=== PATIENT | female | born 1995 | race Caucasian/White ===

== ENCOUNTER 2018-02-12 20:20 | Emergency (ER) | payer BC, OTHER ==
[2018-02-12] MEDS ORDERED: IBUPROFEN 200 MG TAB PO ONE (20:43)
[2018-02-12] MEDS ORDERED: ACETAMINOPHEN 325 MG TABLET ONE (20:43)
[2018-02-12] MEDS ORDERED: IBUPROFEN 400 MG TAB ONE (20:43)
[2018-02-12] MEDS ORDERED: DEXAMETHASONE 10 MG/ML VIAL ONE (21:40)
--- NOTE | 2018-02-12 23:08 | RAD REPORT ---
EXAM DESCRIPTION: RAD - Chest Pa And Lat (2 Views) - 02/12/2018 10:56 pm CLINICAL HISTORY: Sore throat, chills, nasal congestion. Cough. COMPARISON: None. FINDINGS: The lungs are clear. The heart is normal in size. No displaced fractures. IMPRESSION: No acute or concerning finding suspected.
--- NOTE | 2018-02-12 23:16 | EDPHYS ---
Physician Documentation [facility] Name: Remington Bradford Age: 22 yrs Sex: Female : 1995 Arrival Date: 02/12/2018 Time: 20:20 Bed 23 Private MD: ED Physician Nikita Moore HPI: 02/12 21:47 This 22 yrs old Female presents to ER via Ambulatory with complaints of snw Chills, Fever, Sore Throat. 21:47 Onset: The symptoms/episode began/occurred suddenly, 2 day(s) ago, and became snw persistent. Associated signs and symptoms: Pertinent positives: congestion, cough, fever, sore throat. The patient has not experienced similar symptoms in the past. The patient has not recently seen a physician. 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 - Social history:: Smoking status: Patient/guardian denies using tobacco. ROS: 21:45 Constitutional: Negative for fever, chills, and weight loss, Eyes: Negative for injury, snw pain, redness, and discharge. 21:45 Neck: Negative for injury, pain, and swelling, Cardiovascular: Negative for chest pain, palpitations, and edema. 21:45 Abdomen/GI: Negative for abdominal pain, nausea, vomiting, diarrhea, and constipation, Back: Negative for injury and pain, : Negative for injury, bleeding, discharge, and swelling, MS/Extremity: Negative for injury and deformity, Skin: Negative for injury, rash, and discoloration, Neuro: Negative for headache, weakness, numbness, tingling, and seizure. 21:45 ENT: Positive for sore throat. 21:45 Respiratory: Positive for cough. Exam: 21:45 Head/Face: Normocephalic, atraumatic. Eyes: Pupils equal round and reactive to light, snw extra-ocular motions intact. Lids and lashes normal. Conjunctiva and sclera are non-icteric and not injected. Cornea within normal limits. Periorbital areas with no swelling, redness, or edema. 21:45 Neck: Trachea midline, no thyromegaly or masses palpated, and no cervical lymphadenopathy. Supple, full range of motion without nuchal rigidity, or vertebral point tenderness. No Meningismus. Chest/axilla: Normal chest wall appearance and motion. Nontender with no deformity. No lesions are appreciated. 21:45 Respiratory: Lungs have equal breath sounds bilaterally, clear to auscultation and percussion. No rales, rhonchi or wheezes noted. No increased work of breathing, no retractions or nasal flaring. Abdomen/GI: Soft, non-tender, with normal bowel sounds. No distension or tympany. No guarding or rebound. No evidence of tenderness throughout. Back: No spinal tenderness. No costovertebral tenderness. Full range of motion. Skin: Warm, dry with normal turgor. Normal color with no rashes, no lesions, and no evidence of cellulitis. MS/ Extremity: Pulses equal, no cyanosis. Neurovascular intact. Full, normal range of motion. Neuro: Awake and alert, GCS 15, oriented to person, place, time, and situation. Cranial nerves II-XII grossly intact. Motor strength 5/5 in all extremities. Sensory grossly intact. Cerebellar exam normal. Normal gait. 21:45 Constitutional: The patient appears alert, awake, uncomfortable. 21:45 ENT: TM's: are normal, Nose: is normal, Mouth: is normal, Posterior pharynx: erythema, that is moderate, that is marked, Dental exam: normal. 21:45 Cardiovascular: Rate: tachycardic, Heart sounds: normal. Vital Signs: 20:40 BP 131 / 99; Pulse 132; Resp 20; Temp 100.0; Pulse Ox 98% on R/A; Weight 86.18 kg; aj Height 5 ft. 6 in. (167.64 cm); Pain 8/10; 21:39 BP 120 / 86; Pulse 133; Resp 19; Temp 100.8(O); Pulse Ox 98% on R/A; kr2 22:05 BP 115 / 65; Pulse 114; Resp 18; Pulse Ox 95% on R/A; aa1 22:46 BP 114 / 60; Pulse 102; Resp 16; Pulse Ox 99% on R/A; kr2 20:40 Body Mass Index 30.67 (86.18 kg, 167.64 cm) aj MDM: 21:26 Patient medically screened. snw 23:16 Data reviewed: vital signs, nurses notes. Data interpreted: Pulse oximetry: on room air snw is 99 %. Interpretation: normal. Counseling: I had a detailed discussion with the patient and/or guardian regarding: the historical points, exam findings, and any diagnostic results supporting the discharge/admit diagnosis, lab results, the need for outpatient follow up, for definitive care, to return to the emergency department if symptoms worsen or persist or if there are any questions or concerns that arise at home. Special discussion: Based on the history and exam findings, there is no indication for further emergent testing or inpatient evaluation. I discussed with the patient/guardian the need to see the primary care provider for further evaluation of the symptoms. 02/12 20:23 Order name: Strep; Complete Time: 21:02 snw 02/12 21:02 Order name: Throat Culture EDMS 02/12 22:07 Order name: Chest Pa And Lat (2 Views) XRAY; Complete Time: 23:13 snw 02/12 21:32 Order name: VS Recheck; Complete Time: 21:39 snw 02/12 21:37 Order name: PO challenge; Complete Time: 21:53 snw Administered Medications: 20:45 Drug: Motrin 600 mg Route: PO; aj 20:45 Drug: Tylenol 650 mg Route: PO; aj 21:45 Drug: Decadron 10 mg Route: IM; Site: right deltoid; kr2 Disposition: 02/13 08:19 Co-signature as Attending Physician, Nkiita Moore MD I agree with the assessment and carol plan of care. Disposition: 02/12/18 23:15 Discharged to Home. Impression: Bronchitis, not specified as acute or chronic. - Condition is Stable. - Discharge Instructions: Acute Bronchitis, Fever, Adult, Upper Respiratory Infection, Adult, Cool Mist Vaporizers. - Prescriptions for Zyrtec 10 mg Oral Tablet - take 1 tablet by ORAL route once daily As needed; 20 tablet. Prednisone 20 mg Oral Tablet - take 2 tablet by ORAL route once daily for 5 days; 10 tablet. - Work release form, Medication Reconciliation Form, Thank You Letter, Antibiotic Education, Prescription Opioid Use form. - Follow up: Private Physician; When: 2 - 3 days; Reason: Recheck today's complaints, Continuance of care, Re-evaluation by your physician. Follow up: Emergency Department; When: As needed; Reason: Worsening of condition. Signatures: Dispatcher [employer] EDTyesha Davis, RN RN aa1 Mary German RN RN Nikita Summers MD MD cha Therrien, Shelly, CORPORATE EXECUTIVE-C CORPORATE EXECUTIVE-Csnw Nohemy Thrasher RN RN kr2 Corrections: (The following items were deleted from the chart) 02/12 23:24 23:15 02/12/2018 23:15 Discharged to Home. Impression: Bronchitis, not specified as aa1 acute or chronic. Condition is Stable. Forms are Medication Reconciliation Form, Thank You Letter, Antibiotic Education, Prescription Opioid Use. Follow up: Private Physician; When: 2 - 3 days; Reason: Recheck today's complaints, Continuance of care, Re-evaluation by your physician. Follow up: Emergency Department; When: As needed; Reason: Worsening of condition. snw
--- NOTE | 2018-02-12 23:16 | ER ---
Nurse's Notes [facility] Name: Remington Bradford Age: 22 yrs Sex: Female : 1995 Arrival Date: 02/12/2018 Time: 20:20 Bed 23 Private MD: Diagnosis: Bronchitis, not specified as acute or chronic Presentation: 02/12 20:39 Presenting complaint: Patient states: Sore throat, chills, cough, nasal congestion for aj 2 days. Transition of care: patient was not received from another setting of care. Onset of symptoms was February 11, 2018. Initial Sepsis Screen: Does the patient meet any 2 criteria? No. Patient's initial sepsis screen is negative. Does the patient have a suspected source of infection? No. Patient's initial sepsis screen is negative. Care prior to arrival: None. 20:39 Method Of Arrival: Ambulatory aj 20:39 Acuity: RAMON 4 aj Triage Assessment: 20:40 General: Appears in no apparent distress. comfortable, Behavior is calm, cooperative, aj appropriate for age. Pain: Complains of pain in left aspect of posterior pharynx and right aspect of posterior pharynx. EENT: Reports nasal congestion nasal discharge pain when swallowing. Neuro: Level of Consciousness is awake, alert, obeys commands, Oriented to person, place, time, situation, Appropriate for age. Respiratory: Airway is patent Respiratory effort is even, unlabored, Respiratory pattern is regular, symmetrical. Derm: Skin is intact, is healthy with good turgor, Skin is pink, warm \T\ dry. normal. 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 - Social history:: Smoking status: Patient/guardian denies using tobacco. Screenin:53 Abuse screen: Denies threats or abuse. Denies injuries from another. Nutritional kr2 screening: No deficits noted. Tuberculosis screening: No symptoms or risk factors identified. Fall Risk None identified. Assessment: 21:51 General: Appears in no apparent distress. comfortable, well groomed, well developed, kr2 well nourished, Behavior is calm, cooperative. Pain:. Neuro: Level of Consciousness is awake, alert, obeys commands, Oriented to person, place, time, situation. Cardiovascular: Capillary refill < 3 seconds in bilateral fingers Patient's skin is warm and dry. Respiratory: Reports cough that is Airway is patent Respiratory effort is even, unlabored, Respiratory pattern is regular, symmetrical, Breath sounds are clear bilaterally. GI: Abdomen is flat, non-distended, Bowel sounds present X 4 quads. : No signs and/or symptoms were reported regarding the genitourinary system. EENT: Nares are clear bilaterally Throat is reddened Reports nasal congestion nasal discharge that is watery. Derm: Skin is intact, is healthy with good turgor, Skin is pink, warm \T\ dry. Musculoskeletal: Circulation, motion, and sensation intact. 22:47 Reassessment: Patient appears in no apparent distress at this time. Patient and/or kr2 family updated on plan of care and expected duration. Pain level reassessed. Patient is alert, oriented x 3, equal unlabored respirations, skin warm/dry/pink. Patient states feeling better. 23:23 Reassessment: Patient appears in no apparent distress at this time. Patient is alert, aa1 oriented x 3, equal unlabored respirations, skin warm/dry/pink. Discussed d/c \T\ f/u instructions with pt; denies questions or concerns at this time. Vital Signs: 20:40 BP 131 / 99; Pulse 132; Resp 20; Temp 100.0; Pulse Ox 98% on R/A; Weight 86.18 kg; aj Height 5 ft. 6 in. (167.64 cm); Pain 8/10; 21:39 BP 120 / 86; Pulse 133; Resp 19; Temp 100.8(O); Pulse Ox 98% on R/A; kr2 22:05 BP 115 / 65; Pulse 114; Resp 18; Pulse Ox 95% on R/A; aa1 22:46 BP 114 / 60; Pulse 102; Resp 16; Pulse Ox 99% on R/A; kr2 20:40 Body Mass Index 30.67 (86.18 kg, 167.64 cm) ED Course: 20:20 Patient arrived in ED. am2 20:23 Bre[facility]alloh [facility]NP-C [facility]. snw 20:23 Nikita Moore MD is Attending Physician. snw 20:39 Triage completed. aj 20:40 Arm band placed on right wrist. aj 21:32 Nohemy Thrasher, RN is Primary Nurse. kr2 21:53 Patient has correct armband on for positive identification. Bed in low position. Call kr2 light in reach. Side rails up X 1. Adult w/ patient. Pulse ox on. NIBP on. Door closed. Head of bed elevated. 22:50 Patient moved to radiology via wheelchair. kc2 22:50 X-ray completed. Patient tolerated procedure well. kc2 22:51 Chest Pa And Lat (2 Views) XRAY In Process Unspecified. EDMS 23:23 No provider procedures requiring assistance completed. Patient did not have IV access aa1 during this emergency room visit. Administered Medications: 20:45 Drug: Motrin 600 mg Route: PO; aj 20:45 Drug: Tylenol 650 mg Route: PO; aj 21:45 Drug: Decadron 10 mg Route: IM; Site: right deltoid; kr2 Outcome: 23:15 Discharge ordered by . snw 23:23 Discharged to home ambulatory, with significant other. aa1 23:23 Condition: good 23:23 Discharge instructions given to patient, Instructed on discharge instructions, follow up and referral plans. medication usage, Demonstrated understanding of instructions, follow-up care, medications, Prescriptions given X 2. 23:24 Patient left the ED. aa1 Signatures: Dispatcher [employer] EDMS Tyesha Vela RN RN aa1 Mary German, RN RN Breana Hernandez FNP-C PROFESSOR OF FAMILY MEDICINE-Csn Yue Quintana kc2 Mary Leslie amNohemy White, RN RN kr2
== END 2018-02-12 23:24 | disposition home or self-care (01) ==
LOC: ER 20:20
DX: J40 Bronchitis, not specified as acute or chronic (principal); Z88.1 Allergy status to other antibiotic agents; Z88.2 Allergy status to sulfonamides
CPT/HCPCS: 71046; 87070; 87081; 96372; 99284; J1100

== ENCOUNTER 2021-12-25 07:44 | Emergency (ER) | payer BC, SELFPAY ==
--- OUTSIDE RECORDS SUMMARY | 2021-12-25 07:47 | XMS REPORT | Continuity of Care Document ---
:1995 Author Organization [facility] t Address [address] [place] [address] Care Team Providers Name Role Phone HANS BINGHAM Primary Care Physician Unavailable Trinidad Parry Attending Clinician Unavailable Only, Db Test Attending Clinician Unavailable Fan KUMAR Attending Clinician FAN Attending Clinician Unavailable Doctor Unassigned, Name Attending Clinician Unavailable HANS BINGHAM Attending Clinician Unavailable Hans Bingham MD Attending Clinician John Melendez DO Attending Clinician Pob1, Care Clinic Attending Clinician Unavailable Anene ORDER ENTRY Attending Clinician ANEBALJEET Attending Clinician Unavailable Payers Payer Name Policy Type Policy Number Effective Date Expiration Date S kelly [employer] [place] - [id number] 2017 00:00:00 OUT OF STATE Problems Condition Condition Condition Status Onset Resolution Last Treating Co mments Source Name Details Category Date Date Treatment Clinician Date Tobacco Tobacco Disease Active Univers abuse abuse -05 ity of 00:00: [place] [address] Medical Branch Encounter Encounter Diagnosis Active [facility] general [facility]oria adult adult l medical medical Outpati examinatio examinatio en t n with n with Clinics abnormal abnormal findings findings Pharyngiti Pharyngiti Diagnosis Active [facility] - unspecifie unspecifie Me moria d etiology d etiology l Outpati ent Clinics Obesity Obesity Diagnosis Active [facility] (BMI (BMI [facility] - 30-39.9) 30-39.9) Memori a l Outpati ent Clinics Allergies, Adverse Reactions, Alerts Allergy Allergy Status Severity Reaction(s) Onset Inactive Treating Comm ents Source Name Type Date Date Clinician AZITHROM DRUG Active Hives Univers YCIN INGREDI 04-08 ity of 00:00: [place] 00 Medical Branch PENICILL DRUG Active Hives Univers IN INGREDI 04-08 ity of 00:00: 00 Medical Branch SULFA Drug Active Other-Cmnt Univer s (SULFONA Class 04-08 ity of MIDE 00:00: [place] ANTIBIOT 00 Medical ICS) Branch Azithrom Propensi Active Hives Univer s ycin ty to 04-08 ity of adverse 00:00: [place] reaction 00 Medical s Branch Penicill Propensi Active Hives Univer s in ty to 04-08 ity of adverse 00:00: [place] reaction 00 Medical s Branch Sulfa Propensi Active Other - See Stomach Un alessia (Sulfona ty to comments 04-08 problems ity of mide adverse 00:00: [place] Antibiot reaction 00 Medica l ics) s Branch Penicill Propensi Active Hives Univer s in ty to 04-08 ity of adverse 00:00: [place] reaction 00 Medical s Branch lactose Adverse Active Info Not [facility] gluten Adverse Active Info Not [facility] Reaction [facility] PCN Adverse Active hives [facility] Reaction [facility] SULPHA Adverse Active stomach [facility] Reaction upset [facility] Azithrom Adverse Active stomach [facility] ycin Reaction upset [facility] Amoxicil Adverse Active hives [facility] kristy Reaction [facility] pork Adverse Active Info Not [facility] Reaction Available [facility] chocolat Adverse Active Info Not [facility] Reaction [facility] Social History Social Habit Start Date Stop Date Quantity Comments Source Exposure to Not sure [facility] SARS-CoV-2 (event) [facility] Alcohol intake 2020-06-29 2020-06-29 Current University of 00:00:00 00:00:00 non-drinker of [facility] alcohol Branch (finding) Tobacco use and 2017-04-08 2017-04-08 Never used Universit y of exposure 00:00:00 00:00:00 [facility] Cigarettes smoked 2017-04-08 2017-04-08 Univers ity of current (pack per 00:00:00 00:00:00 ) - Reported Branch Sex Ass[birth year] At [birth year] Universit y of 00:00:00 00:00:00 [facility] Smoking Status Start Date Stop Date Source Current every day smoker 2017-04-08 00:00:00 [facility] Ordered Filled Start Stop Current Ordering Indication Dosage Frequency Signature Comments Components Source Medication Medication Date Date Medication? Clinician (SIG) Name Name buPROPion Yes [id number] 150mg Take 1 U nivers XL 150 mg 5-28 tablet by ity o f 24 hr 00:00: mouth [place] tablet 00 daily. Medical Branch escitalopra Yes [id number] 20mg Take 1 Univers m oxalate 5-28 tablet by ity o f 20 mg 00:00: mouth [place] tablet 00 daily. Medical Branch buPROPion Yes [id number] 150mg Take 1 U nivers XL 150 mg 5-28 tablet by ity o f 24 hr 00:00: mouth [place] tablet 00 daily. Medical Branch escitalopra Yes [id number] 20mg Take 1 Univers m oxalate 5-28 tablet by ity o f 20 mg 00:00: mouth [place] tablet 00 daily. Medical Branch buPROPion Yes [id number] 150mg Take 1 U nivers XL 150 mg 5-28 tablet by ity o f 24 hr 00:00: mouth [place] tablet 00 daily. Medical Branch escitalopra Yes [id number] 20mg Take 1 Univers m oxalate 5-28 tablet by ity o f 20 mg 00:00: mouth [place] tablet 00 daily. Medical Branch buPROPion Yes [id number] 150mg Take 1 U nivers XL 150 mg 5-28 tablet by ity o f 24 hr 00:00: mouth [place] tablet 00 daily. Medical Branch escitalopra Yes [id number] 20mg Take 1 Univers m oxalate 5-28 tablet by ity o f 20 mg 00:00: mouth [place] tablet 00 daily. Medical Branch escitalopra 2019-10 Yes [id number] 15mg Take 1.5 Univers m oxalate 0-14 tablets by ity of 10 mg 00:00: mouth [place] tablet 00 daily. Medical Branch escitalopra 2019-10 Yes [id number] 15mg Take 1.5 Univers m oxalate 0-14 tablets by ity of 10 mg 00:00: mouth [place] tablet 00 daily. Medical Branch escitalopra 2019-10 Yes [id number] 15mg Take 1.5 Univers m oxalate 0-14 tablets by ity of 10 mg 00:00: mouth [place] tablet 00 daily. Medical Branch escitalopra 2019-10 Yes [id number] 15mg Take 1.5 Univers m oxalate 0-14 tablets by ity of 10 mg 00:00: mouth [place] tablet 00 daily. Medical Branch escitalopra 2019-10- No [id number] 15mg Take 1.5 Univers m oxalate 0-14 05-28 tablets by ity of 10 mg 00:00: 00:00 mouth [place] tablet 00 :00 daily. [facility] Branch escitalopra 2019-10- No [id number] 15mg Take 1.5 Univers m oxalate 0-14 05-28 tablets by ity of 10 mg 00:00: 00:00 mouth [place] tablet 00 :00 daily. [facility] famotidine 2020- No 40mg Take 40 mg Univers 40 mg 9-16 09-16 by mouth ity of tablet 20:34: 00:00 daily. [place] 51 :00 [facility] famotidine 2020- No 40mg Take 40 mg Univers 40 mg 9-16 09-16 by mouth ity of tablet 20:34: 00:00 daily. [place] 51 :00 [facility] Branch escitalopra Yes [id number] 10mg Take 1 Univers m oxalate 9-16 tablet by ity o f 10 mg 00:00: mouth [place] tablet 00 daily. Medical Branch escitalopra Yes [id number] 10mg Take 1 Univers m oxalate 9-16 tablet by ity o f 10 mg 00:00: mouth [place] tablet 00 daily. [facility] escitalopra 2019- No [id number] 10mg Take 1 Univers m oxalate 9-16 10-14 tablet by ity of 10 mg 00:00: 00:00 mouth [place] tablet 00 :00 daily. [facility] escitalopra 2020-0 2020- No [id number] 10mg Take 1 Univers m oxalate 9-16 10-14 tablet by ity of 10 mg 00:00: 00:00 mouth [place] tablet 00 :00 daily. Medical Branch omeprazole 2019-0 Yes 40mg Take 40 mg U nivers 40 mg 8-25 by mouth ity of capsule 00:00: daily. [place] 00 Medical Branch omeprazole 2019-0 Yes 40mg Take 40 mg U nivers 40 mg 8-25 by mouth ity of capsule 00:00: daily. [place] 00 Medical Branch omeprazole 2019-0 2020- No 40mg Take 40 mg Univers 40 mg 8-25 10-14 by mouth ity of capsule 00:00: 00:00 daily. [place] 00 :00 Medical Branch omeprazole 2019-0 2020- No 40mg Take 40 mg Univers 40 mg 8-25 10-14 by mouth ity of capsule 00:00: 00:00 daily. [place] 00 :00 Medical Branch famotidine 2019-0 Yes 40mg Take 40 mg U nivers 40 mg 7-27 by mouth ity of tablet 14:58: daily. [place] 17 Medical Branch famotidine 2019-0 Yes 40mg Take 40 mg U nivers 40 mg 7-27 by mouth ity of tablet 14:58: daily. [place] [address] Medical Branch pantoprazol 2019-0 Yes [id number] 40mg Take 1 Univers e 7-27 tablet by ity of (PROTONIX) 00:00: mouth [place] 40 mg EC 00 daily. Medical tablet Branch pantoprazol 2019-0 Yes [id number] 40mg Take 1 Univers e 7-27 tablet by ity of (PROTONIX) 00:00: mouth [place] 40 mg EC 00 daily. Medical tablet Branch pantoprazol 0 2020- No [id number] 40mg Take 1 Univers e 7-27 09-16 tablet by ity of (PROTONIX) 00:00: 00:00 mouth [place] 40 mg EC 00 :00 daily. Medical tablet Branch pantoprazol 2019-0 2020- No [id number] 40mg Take 1 Univers e 7-27 09-16 tablet by ity of (PROTONIX) 00:00: 00:00 mouth [place] 40 mg EC 00 :00 daily. Medical tablet Branch acetaminoph 2017-0 Yes [id number] 1/2 - 1 Univers en-codeine 5-05 tab Every ity of 300-30 mg 00:00: 4hrs as [place] tablet 00 needed for Medical pain or Branch cough requiring narcotic acetaminoph Yes [id number] 2 - 1 Univers en-codeine 5-05 tab Every ity of 300-30 mg 00:00: 4hrs as [place] tablet 00 needed for Medical pain or Branch cough requiring narcotic acetaminoph 2020- No [id number] 10/15 - 1 Univers en-codeine 5-05 -16 tab Every ity of 300-30 mg 00:00: 00:00 4[place]rs [place] tablet [place] :00 needed for Medical pain or Branch cough requiring narcotic acetaminoph 2020- No [id number] 10/15 - Univers en-codeine 5-05 -16 tab Every ity of 300-30 mg 00:00: 00:00 4[place]rs [place] tablet [place] :00 needed for Medical pain or Branch cough requiring narcotic predniSONE Yes Univers 20 mg 5-03 ity of tablet 00:00: [place] 00 Medical Branch predniSONE Yes Univers 20 mg 5-03 ity of tablet 00:00: [place] 00 Medical Branch predniSONE 2020- No Univer s 20 mg 5-03 -16 ity of tablet 00:00: 00:00 [place] 00 :00 Medical Branch predniSONE 2020- No Univer s 20 mg 5-03 -16 ity of tablet 00:00: 00:00 [place] 00 :00 Medical Branch Immunizations Ordered Filled Immunization Date Status Comments [facility] e Immunization Name Name Gardasil, HPV Gardasil, HPV 2019-11-[address] [facility] - quadrivalent, IM, quadrivalent, IM, 00:00:00 [facility] Vital Signs Vital Name Observation Time Observation Value Comments Source Systolic blood 2021-03-10 15:19:00 126 mm[Hg] Univer sity of pressure [facility] Diastolic blood 2021-03-10 15:19:00 86 mm[Hg] Unive rsity of pressure [facility] Heart rate 2021-03-10 15:19:00 86 /min [facility] Body height 2021-03-10 15:19:00 170.2 cm [facility] Body weight 2021-03-10 15:19:00 104.327 kg Universi ty of [facility] Branch BMI 2021-03-10 15:19:00 36.02 kg/m2 Universi ty of [facility] Branch Systolic blood 2020-07-27 20:03:00 133 mm[Hg] Univer sity of pressure [place] Medical [facility] Diastolic blood 2020-07-27 20:03:00 84 mm[Hg] Unive rsity of pressure [facility] Branch Heart rate 2020-07-27 20:03:00 89 /min Universi ty of [place] Medical [facility] Body weight 2020-07-27 20:03:00 99.338 kg Universi ty of [place] Medical Branch BMI 2020-07-27 20:03:00 34.30 kg/m2 Universi ty of [facility] Branch Systolic blood 2020-06-29 20:33:00 135 mm[Hg] Univer sity of pressure [facility] Branch Diastolic blood 2020-06-29 20:33:00 89 mm[Hg] Unive rsity of pressure [facility] Branch Heart rate 2020-06-29 20:33:00 89 /min Universi ty of [facility] Branch Body temperature 2020-06-29 20:33:00 37.06 Betina Univ ersity of [facility] Body height 2020-06-29 20:33:00 170.2 cm Universi ty of [facility] Branch Body weight 2020-06-29 20:33:00 98.884 kg Universi ty of [facility] Branch BMI 2020-06-29 20:33:00 34.14 kg/m2 Universi ty of [facility] Branch Systolic blood 2020-05-09 14:56:00 115 mm[Hg] Univer sity of pressure [facility] Branch Diastolic blood 2020-05-09 14:56:00 70 mm[Hg] Unive rsity of pressure [facility] Branch Heart rate 2020-05-09 14:56:00 67 /min Universi ty of [facility] Branch Body temperature 2020-05-09 14:56:00 37.39 Betina Univ ersity of [facility] Branch Respiratory rate 2020-05-09 14:56:00 18 /min Univ ersity of [facility] Branch Body height 2020-05-09 14:56:00 170.2 cm Universi ty of [facility] Branch Body weight 2020-05-09 14:56:00 103.42 kg Universi ty of [facility] Branch BMI 2020-05-09 14:56:00 35.71 kg/m2 [facility] Oxygen saturation in 2020-05-09 14:56:00 99 /min University Arterial blood by [facility] Pulse oximetry Branch Procedures Procedure Date / Time Performed Performing Clinician [facility] e CONSENT/REFUSAL FOR 2021-11-08 16:55:51 Doctor Unassigned, No Un [facility] DIAGNOSIS AND Name Medical Branch TREATMENT Encounters Start End Encounter Admission Attending Care Care Encounter Source Date/Time Date/Time Type Type Clinicians Facility Department ID 2021-11-[address] [id number] 11:02:10 [place] [id number] [facility] 2021-11-08 2021-11-08 Laboratory Only, Ang Db Test [facility] 1.2.8 40.114 [id number] Univers 10:45:00 11:00:00 Only Fan Vikki [facility] [id number] ity of [place] [id number] Shadi as CAIN?BLEA [phone] [address] MEDICAL OFFICE BUILDING 2021-11-08 2021-11-08 Outpatient R [facility] [id number] Univers 10:45:00 10:45:00 [id number] ity [facility] 2021-11-08 2021-11-08 Outpatient R FAN [facility] [id number] Univers 10:45:00 10:45:00 VIKKI [facility] 2021-11-08 2021-11-08 Orders Doctor MAHMOOD 1.2.840.114 [id number] Univers 00:00:00 00:00:00 Only UnassLETICIA munoz [id number] ity of Standard [facility] [id number] Shadi as [phone] [place] [address] Branch 2021-04-07 2021-04-07 Outpatient R VICTORINO [facility] [id number] Univers 10:00:00 10:00:00 [facility] [id number] [facility] 2021-04-07 2021-04-07 Outpatient R VICTORINO [facility] [id number] Univers 10:00:00 10:00:00 GLORIA [facility] 2021-03-10 2021-03-[address] [facility] 1.2.840.114 [id number] Univers 10:13:12 10:28:12 Visit [facility] [id number] it y of [place] [id number] Shadi as [place] [phone] Nv dical nal [address] 2021-03-10 2021-03-10 [facility] [id number] Univers 10:15:00 10:15:00 GLORIA [id number] [facility] 2021-03-10 2021-03-10 Outpatient R [facility] [id number] Univers 10:15:00 10:15:00 GLORIA [facility] 2021-01-03 2021-01-[address] [facility] 1.2.840.114 [id number] Univers 00:00:00 00:00:00 Outreach [facility] [id number] i ty of [facility] [id number] Malina UP [id number] Nv dical [address] 2020-11-23 2020-11-23 Outpatient R [facility] [id number] Univers 10:15:00 10:15:00 GLORIA [id number] [facility] 2020-11-23 2020-11-23 Outpatient R [facility] [id number] Univers 10:15:00 10:15:00 GLORIA [facility] 2020-08-24 2020-08-24 Outpatient R HADLEYLOPEZALEXAND[facility] [id number] Univers 13:15:00 13:15:00 GLORIA [id number] [facility] 2020-08-24 2020-08-24 Outpatient R [facility] [id number] Univers 13:15:00 13:15:00 GLORIA [facility] 2020-08-23 2020-08-23 Telephone [facility] 1.2.840.114 [id number] Univers 00:00:00 00:00:00 [facility] [id number] it y of [place] [id number] Shadi as Professio [phone] Nv dical nal [address] [place] [address] Office [facility] 2020-07-27 2020-07-27 Office [facility] 1.2.840.114 [id number] Univers 14:56:19 15:11:19 Visit [facility] [id number] it y of [place] [id number] Shadi as Professio [phone] Nv dical [address] Office [facility] 2020-07-27 2020-07-27 [facility] [id number] Univers 15:00:00 15:00:00 GLORIA [id number] [facility] 2020-07-27 2020-07-27 Outpatient R [facility]LEYL[facility] [id number] Univers 15:00:00 15:00:00 General acute hospital 2020-06-29 2020-06-29 [facility] 1.2.840.114 [id number] Univers 15:26:03 15:58:52 Visit [facility] [id number] it y of [place] [id number] Shadi as Professio [phone] [address] 2020-06-29 2020-06-29 Outpatient R [facility] [id number] Univers 15:30:00 15:30:00 GLORIA [id number] [facility] 2020-06-29 2020-06-29 [facility] [id number] Univers 15:30:00 15:30:00 GLORIA [facility] 2020-06-24 2020-06-24 Outpatient R [facility] [id number] Univers 13:30:00 13:30:00 GLORIA [id number] [facility] 2020-06-24 2020-06-24 Outpatient [facility] [id number] Univers 13:30:00 13:30:00 GLORIA [facility] 2020-06-24 2020-06-24 [facility] [id number] Univers 09:30:00 09:30:00 GLORIA ity [facility] 2020-06-08 2020-06-08 Telephone Victorino [facility] 1.2.840.114 [id number] Univers 00:00:00 00:00:00 Gloria [facility] [id number] it y of [place] [id number] Shadi as Professio [phone] [address] Office [address] 2020-05-09 2020-05-09 Urgent Pob1, Acute Care Clinic [facility] 1. [id number] [id number] [facility] 09:48:24 10:33:47 Elena Richardson [facility] [id number] ity of [place] [id number] Shadi as Professio [phone] [address] Office [facility] 2020-05-09 2020-05-09 Outpatient R [facility] [id number] Univers 09:40:00 09:40:00 [id number] ity [facility] 2020-05-09 2020-05-09 [facility] [id number] Univers 09:40:00 09:40:00 [facility] 2019-11-03 2019-11-03 [facility] [id number] 14[facility]00:00 14:00:00 [facility] Family Medicine Medicine Outpati ent Clinics Results This patient has no known results.
[2021-12-25] MEDS ORDERED: NA CHLORIDE 0.9% 1,000 ML ONE (08:35)
[2021-12-25] MEDS ORDERED: ONDANSETRON 4 MG/2 ML VIAL ONE (08:35)
[2021-12-25 08:51] LABS: Absolute Lymphocytes (CBC) 2.6 K/uL (0.7-4.9); Hematocrit 44.7 % (36.0-45.0); Lymphocytes % 35.4 % (15.3-44.8); MPV 9.5 fL (7.6-11.3); RBC Red Blood Cell Count 4.81 M/uL (3.86-4.86)
--- NOTE | 2021-12-25 09:03 | RAD REPORT ---
EXAM DESCRIPTION: US - Abdomen Exam Limited - 12/25/2021 8:43 am CLINICAL HISTORY: ABD PAIN COMPARISON: No comparisons FINDINGS: The gallbladder demonstrates no gallstones. No pericholecystic fluid or gallbladder wall t hickening. The common bile duct is normal measuring 3 mm. The liver demonstrates no findings of intrahepatic biliary dilatation. IMPRESSION: Unremarkable examination.
[2021-12-25 09:31] LABS: ALT/SGPT 112 U/L (12-78); AST/SGOT 49 U/L (15-37); Albumin 4.1 g/dL (3.4-5.0); Alkaline Phosphatase 69 U/L (45-117); BUN Blood Urea Nitrogen 7 mg/dL (7-18); Bicarbonate 27 mmol/L (21-32); Bilirubin Total 0.4 mg/dL (0.2-1.0); Glucose Level 98 mg/dL (74-106); Lipase 110 U/L (73-393); Potassium 4.3 mmol/L (3.5-5.1); Protein, Total 7.8 g/dL (6.4-8.2); Sodium Level 140 mmol/L (136-145)
[2021-12-25 09:32] LABS: Bilirubin Direct < 0.1 mg/dL (0-0.2)
[2021-12-25 10:06] LABS: Urine Blood Negative (Negative); Urine Glucose Negative (Negative); Urine Protein Negative (Negative); Urine Specific Gravity 1.015 (1.005-1.030); Urine pH 5.5 (5.0-7.0)
--- NOTE | 2021-12-25 10:30 | RAD REPORT ---
EXAM DESCRIPTION: CTAbdomen Pelvis W Contrast - 12/25/2021 10:12 am CLINICAL HISTORY: Abdominal pain. ABD PAIN COMPARISON: No comparisons TECHNIQUE: Biphasic CT imaging of the abdomen and pelvis was performed with 100 ml non-ionic IV cont rast. All CT scans are performed using dose optimization technique as appropriate and may include automated exposure control or mA/KV adjustment according to patient size. FINDINGS: The lung bases are clear. The liver demonstrates mild fatty infiltration. Spleen, pancreas, adrenal glands and kidneys are with in normal limits. No bowel obstruction, free air, free fluid or abscess. Small fat containing umbilical hernia. The sadaf endix is normal. No evidence of significant lymphadenopathy. No suspicious bony findings. IMPRESSION: No acute intra-abdominal or pelvic finding. Fatty liver.
--- NOTE | 2021-12-25 11:12 | ER ---
Nurse's Notes [facility] Name: Remington Bradford Age: 26 yrs Sex: Female : 1995 Arrival Date: 12/25/2021 Time: 07:47 Bed 20 Private MD: Toby Bingham Diagnosis: Abdominal pain, Generalized;Upper abdominal pain, unspecified;Acute gastritis Presentation: 12/25 08:05 Chief complaint: Patient states: Epigastric pain x 1 month, reports worse right after jl7 eating, reports abdomen becomes distended, reports nausea and diarrhea, denies bloody stool and reports "Last night it smelled like blood.". Coronavirus screen: At this time, the client does not indicate any symptoms associated with coronavirus-19. Ebola Screen: No symptoms or risks identified at this time. Initial Sepsis Screen: Does the patient meet any 2 criteria? No. Patient's initial sepsis screen is negative. Does the patient have a suspected source of infection? No. Patient's initial sepsis screen is negative. Risk Assessment: Do you want to hurt yourself or someone else? Patient reports no desire to harm self or others. Onset of symptoms was November 27, 2021. 08:05 Method Of Arrival: Ambulatory jl7 08:05 Acuity: RAMON 3 jl7 Triage Assessment: 08:07 General: Appears in no apparent distress. uncomfortable, Behavior is calm, cooperative, jl7 appropriate for age. Pain: Complains of pain in epigastric area Pain does not radiate. Pain currently is 7 out of 10 on a pain scale. at worst was 12 out of 10 on a pain scale. GI: Reports bloating, diarrhea, epigastric pain, nausea. 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 - Social history:: Smoking status: Patient denies any tobacco usage or history of. Screenin:24 Abuse screen: Denies threats or abuse. Denies injuries from another. Nutritional ic1 screening: No deficits noted. Tuberculosis screening: No symptoms or risk factors identified. Fall Risk None identified. Assessment: 08:24 General: Appears uncomfortable, Behavior is calm, cooperative. Pain: Complains of pain ic1 in abdomen. Neuro: Level of Consciousness is awake, alert, obeys commands, Oriented to person, place, time, situation. Cardiovascular: No deficits noted. Respiratory: No deficits noted. GI: Reports upper abdominal pain, diarrhea, nausea. : No deficits noted. EENT: No deficits noted. Derm: No deficits noted. Musculoskeletal: No deficits noted. Vital Signs: 08:05 BP 133 / 91; Pulse 77; Resp 17; Temp 97.7; Pulse Ox 100% on R/A; Weight 107.05 kg; jl7 Height 5 ft. 7 in. (170.18 cm); Pain 7/10; 09:41 Pulse 80; Resp 18; Pulse Ox 100% ; ic1 11:24 BP 120 / 68; Pulse 85; Resp 18; Pulse Ox 100% ; ic1 08:05 Body Mass Index 36.96 (107.05 kg, 170.18 cm) jl7 ED Course: 07:47 Patient arrived in ED. as 07:47 Toby Bingham MD is Private Physician. as 07:48 Eros Cole MD is Attending Physician. kdr 08:07 Triage completed. jl7 08:07 Arm band placed on right wrist. jl7 08:24 Radha Augustine, RN is Primary Nurse. ic1 08:24 Patient has correct armband on for positive identification. Bed in low position. Call ic1 light in reach. Side rails up X2. Pulse ox on. NIBP on. Door closed. Warm blanket given. Head of bed elevated. 08:24 No provider procedures requiring assistance completed. Inserted saline lock: 20 gauge ic1 in left antecubital area, using aseptic technique. Blood collected. 08:43 US Abdomen Limited In Process Unspecified. EDMS 10:12 CT Abd/Pelvis - IV Contrast Only In Process Unspecified. EDMS 11:11 Toby Bingham MD is Referral Physician. kdr 11:11 Norma Nj MD is Referral Physician. kdr 11:24 IV discontinued, intact, bleeding controlled, No redness/swelling at site. Pressure ic1 dressing applied. Administered Medications: 08:42 Drug: Zofran (Ondansetron) 4 mg Route: IVP; Site: left antecubital; ic1 08:42 Drug: NS 0.9% 1000 ml Route: IV; Rate: 1 bolus; Site: left antecubital; ic1 10:19 Follow up: IV Status: Completed infusion; IV Intake: 1000ml ic1 Intake: 10:19 IV: 1000ml; Total: 1000ml. ic1 Outcome: 11:12 Discharge ordered by . kdr 11:24 Discharged to home ambulatory. ic1 11:24 Condition: stable 11:24 Discharge instructions given to patient, Instructed on discharge instructions, follow up and referral plans. Demonstrated understanding of instructions, follow-up care, medications, Prescriptions given X 2. 11:25 Patient left the ED. ic1 Signatures: Dispatcher [employer] EDMS Eros Cole MD MD kdr Martinez, Amelia as Leal, Jahala, RN RN jl7 Radha Augustine RN RN ic1 Corrections: (The following items were deleted from the chart) 08:09 08:07 PMHx: None; morgan mora
--- NOTE | 2021-12-25 11:13 | EDPHYS ---
Physician Documentation [facility] Name: Remington Bradford Age: 26 yrs Sex: Female : 1995 Arrival Date: 12/25/2021 Time: 07:47 Bed 20 Private MD: Toby Bingham ED Physician Eros Cole HPI: 12/25 08:34 This 26 yrs old Female presents to ER via Ambulatory with complaints of Epigastric kdr Pain, Abdominal Pain. 08:34 The patient presents with abdominal pain in the upper abdomen. Onset: The kdr symptoms/episode began/occurred gradually, 1 month(s) ago. The symptoms do not radiate. Associated signs and symptoms: Pertinent positives: nausea. The symptoms are described as achy, crampy, intermittent, vague, waxing/waning. Modifying factors: The symptoms are alleviated by nothing, the symptoms are aggravated by food, pressure, touching the area. Severity of pain: At its worst the pain was severe in the emergency department the pain is unchanged. The patient has experienced similar episodes in the past, Has been ongoing for a month or more. The patient has not recently seen a physician. Patient had seen a local GI doctor over the past year or so and had an endoscopy done at that time. Her impression was that there was some mild inflammation but otherwise nothing serious and no further follow-up. 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 - Social history:: Smoking status: Patient denies any tobacco usage or history of. ROS: 08:34 Constitutional: Negative for fever, chills, and weight loss, Eyes: Negative for injury, kdr pain, redness, and discharge, Neck: Negative for injury, pain, and swelling, Cardiovascular: Negative for chest pain, palpitations, and edema, Respiratory: Negative for shortness of breath, cough, wheezing, and pleuritic chest pain, Back: Negative for injury and pain, : Negative for injury, bleeding, discharge, and swelling, MS/Extremity: Negative for injury and deformity, Skin: Negative for injury, rash, and discoloration, Neuro: Negative for headache, weakness, numbness, tingling, and seizure activity. Psych: Negative for depression, anxiety, suicide ideation, homicidal ideation, and hallucinations, Allergy/Immunology: Negative for hives, rash, and allergies, Endocrine: Negative for neck swelling, polydipsia, polyuria, polyphagia, and marked weight changes, Hematologic/Lymphatic: Negative for swollen nodes, abnormal bleeding, and unusual bruising. 08:34 Abdomen/GI: Positive for abdominal pain, nausea, Negative for vomiting, constipation, abdominal distension, anorexia, dysphagia, hematemesis, black/tarry stool, rectal pain, rectal bleeding, bowel incontinence. Exam: 08:34 Constitutional: This is a well developed, well nourished patient who is awake, alert, kdr and in no acute distress. Head/Face: Normocephalic, atraumatic. Eyes: Pupils equal round and reactive to light, extra-ocular motions intact. Lids and lashes normal. Conjunctiva and sclera are non-icteric and not injected. Cornea within normal limits. Periorbital areas with no swelling, redness, or edema. Neck: Trachea midline, no thyromegaly or masses palpated, and no cervical lymphadenopathy. Supple, full range of motion without nuchal rigidity, or vertebral point tenderness. No Meningismus. Chest/axilla: Normal chest wall appearance and motion. Nontender with no deformity. No lesions are appreciated. Cardiovascular: Regular rate and rhythm with a normal S1 and S2. No gallops, murmurs, or rubs. Normal PMI, no JVD. No pulse deficits. Respiratory: Lungs have equal breath sounds bilaterally, clear to auscultation and percussion. No rales, rhonchi or wheezes noted. No increased work of breathing, no retractions or nasal flaring. Back: No spinal tenderness. No costovertebral tenderness. Full range of motion. Skin: Warm, dry with normal turgor. Normal color with no rashes, no lesions, and no evidence of cellulitis. MS/ Extremity: Pulses equal, no cyanosis. Neurovascular intact. Full, normal range of motion. Neuro: Awake and alert, GCS 15, oriented to person, place, time, and situation. Cranial nerves II-XII grossly intact. Motor strength 5/5 in all extremities. Sensory grossly intact. Cerebellar exam normal. Normal gait. Psych: Awake, alert, with orientation to person, place and time. Behavior, mood, and affect are within normal limits. 08:34 Abdomen/GI: Inspection: obese Bowel sounds: diminished, in all quadrants, Palpation: soft, mild abdominal tenderness, in the right upper quadrant and right lower quadrant, rebound tenderness, is not appreciated, Rectal exam: is unremarkable, rectal tone normal, Stool: guaiac negative, mass, is not appreciated, tenderness, is not appreciated, the exam is chaperoned by the nurse. Vital Signs: 08:05 BP 133 / 91; Pulse 77; Resp 17; Temp 97.7; Pulse Ox 100% on R/A; Weight 107.05 kg; jl7 Height 5 ft. 7 in. (170.18 cm); Pain 7/10; 09:41 Pulse 80; Resp 18; Pulse Ox 100% ; ic1 11:24 BP 120 / 68; Pulse 85; Resp 18; Pulse Ox 100% ; ic1 08:05 Body Mass Index 36.96 (107.05 kg, 170.18 cm) jl7 MDM: 08:34 Data reviewed: vital signs, nurses notes, lab test result(s), radiologic studies. kdr Counseling: I had a detailed discussion with the patient and/or guardian regarding: the historical points, exam findings, and any diagnostic results supporting the discharge/admit diagnosis, lab results, radiology results, the need for outpatient follow up. 11:12 Patient medically screened. kdr 11:15 ED course: Patient symptoms were much improved. She rated her pain at a 2 or 3. She kdr declined further pain medication. Patient was happy with the care provided the plan for discharge and follow-up. She had seen a local services mgr previously for this pain . 12/25 08:24 Order name: Basic Metabolic Panel; Complete Time: :44 kdr 12/25 08:24 Order name: CBC with Diff; Complete Time: :44 kdr 12/25 08:24 Order name: Hepatic Function; Complete Time: :44 kdr 12/25 08:24 Order name: Lipase; Complete Time: : kdr 12/25 10:05 Order name: Urine Dipstick-Ancillary; Complete Time: 10:28 EDMS 12/25 10:07 Order name: Urine --Ancillary (enter results) bd 12/25 08:24 Order name: IV Saline Lock; Complete Time: 08:28 kdr 12/25 08:24 Order name: Labs collected and sent; Complete Time: 08:28 kdr 12/25 08:24 Order name: Urine Dipstick-Ancillary (obtain specimen); Complete Time: 10:19 kdr 12/25 08:24 Order name: Urine Test (obtain specimen); Complete Time: 10:19 kdr 12/25 08:24 Order name: US Abdomen Limited; Complete Time: 09:44 kdr 12/25 08:24 Order name: CT Abd/Pelvis - IV Contrast Only; Complete Time: 10:43 kdr Administered Medications: 08:42 Drug: Zofran (Ondansetron) 4 mg Route: IVP; Site: left antecubital; ic1 08:42 Drug: NS 0.9% 1000 ml Route: IV; Rate: 1 bolus; Site: left antecubital; ic1 10:19 Follow up: IV Status: Completed infusion; IV Intake: 1000ml ic1 Disposition Summary: 12/25/21 11:12 Discharge Ordered Location: Home kdr Problem: an acute exacerbation kdr Symptoms: have improved kdr Condition: Stable kdr Diagnosis - Abdominal pain, Generalized kdr - Upper abdominal pain, unspecified kdr - Acute gastritis kdr Followup: kdr - With: Toby Bingham MD - When: 48 Hours - Reason: If symptoms return, Further diagnostic work-up, Recheck today's complaints, Continuance of care, Re-evaluation by your physician Followup: kdr - With: Norma Nj MD - When: 2 - 3 days - Reason: If symptoms return, Further diagnostic work-up, Recheck today's complaints, Continuance of care, Re-evaluation by your physician Discharge Instructions: - Discharge Summary Sheet kdr - Gastritis, Adult, [id number] kdr - Abdominal Pain, Adult, [id number] kdr Forms: - Medication Reconciliation Form kdr - Thank You Letter kdr Prescriptions: - Protonix 40 mg Oral Tablet - take 1 tablet by ORAL route once daily; 30 tablet; Refills: 0, Product kdr Selection Permitted - ondansetron 8 mg Oral tablet,disintegrating - take 1 tablet by ORAL route every 8 hours As needed; 16 tablet; Refills: 0, kdr Product Selection Permitted Signatures: Dispatcher [employer] Eros Armendariz MD MD kdr Leal, Jahala, RN RN jl7 Radha Augustine RN RN ic1 Corrections: (The following items were deleted from the chart) 08:09 08:07 PMHx: None; morgan mora
[2021-12-25 11:27] LABS: Urine Specific Gravity/Preg 1.015 (1.005-1.030)
[2021-12-25 11:31] VITALS: TEMP 97.7; O2SAT 100
[2021-12-25 11:34] VITALS: BP 120/68
== END 2021-12-25 11:25 | disposition home or self-care (01) ==
LOC: ER 07:44
DX: K29.00 Acute gastritis without bleeding (principal); R10.84 Generalized abdominal pain; Z88.0 Allergy status to penicillin; Z88.1 Allergy status to other antibiotic agents; Z91.09 Other allergy status, other than to drugs and biological substances
CPT/HCPCS: 36415; 74177; 76705; 80048; 80076; 81003; 81025; 83690; 85025; 96361; 96374; 99284; J2405; J7030; Q9967

== ENCOUNTER 2023-04-08 11:53 | Emergency (ER) | payer OTHER ==
--- OUTSIDE RECORDS SUMMARY | 2023-04-08 11:57 | XMS REPORT | Continuity of Care Document ---
:1995 Author Organization [facility] t Address [address] [facility] [address] [place] [address] Care Team Providers Name Role Phone GLORIA GLEASON Primary Care Physician Unavailable Leela Parry Attending Clinician Unavailable SHOSHANA OQUENDO Attending Clinician Unavailable SHOSHANA OQUENDO Attending Clinician Unavailable GLORIA GLEASON Attending Clinician Unavailable Gonzales Attending Clinician Unavailable Gloria Gleason MD Attending Clinician Doctor Unassigned, [place] Attending Clinician Unavailable Pob, Adc Lab Main Attending Clinician Unavailable Lab, Ang - Db Attending Clinician Unavailable Only, Ang Db Test Attending Clinician Unavailable Vikki Chavira MD Attending Clinician VIKKI CHAVIRA Attending Clinician Unavailable Darinel Melendez DO Attending Clinician Pob1, Acute [facility] Attending Clinician Unavailable Elena Watt Attending Clinician ELENA CALHOUN Attending Clinician Unavailable Gonzales Admitting Clinician Unavailable Payers Payer Name Policy Type Policy Number Effective Date Expiration Date S ource [facility] GENERIC [id number] 2022 00:00:00 [facility] [id number] [facility] - [id number] 2017 2022 OUT OF STATE 00:00:00 00:00:00 Problems Condition Condition Condition Status Onset Resolution Last Treating Co mments Source Name Details Category Date Date Treatment Clinician Date Weight Weight Disease Active Univers gain gain 1-08 ity of 00:00: Medical Branch Tobacco Tobacco Disease Active Univers abuse abuse 5-05 ity of 00:00: Medical Branch Encounter Encounter Diagnosis Active C ommon for for Spirit general general - [facility] adult adult [facility] examinatio examinatio Me dical n with n with Center abnormal abnormal findings findings Pharyngiti Pharyngiti Diagnosis Active Common s, s, Spirit unspecifie unspecifie - [facility] d etiology d etiology [facility] Obesity Obesity Diagnosis Active Commo n (BMI (BMI Spirit 30-39.9) 30-39.9) - [facility] Allergies, Adverse Reactions, Alerts Allergy Allergy Status Severity Reaction(s) Onset Inactive Treating Comm ents Source Name Type Date Date Clinician AZITHROM DRUG Active Hives Univers YCIN INGREDI 6-26 ity of 00:00: [place] 00 Medical Branch PENICILL DRUG Active Hives Univers IN INGREDI 6-26 ity of 00:00: [place] 00 Medical Branch SULFA Drug Active Other-Cmnt Univer s (SULFONA Class 6-26 ity of MIDE 00:00: [place] ANTIBIOT 00 Medical ICS) Branch Azithrom Propensi Active Hives Univer s ycin ty to 6- ity of adverse 00:00: [place] reaction 00 Medical s Branch Penicill Propensi Active Hives Univer s in ty to 6-26 ity of adverse 00:00: [place] reaction 00 Medical s Branch Sulfa Propensi Active Other - See Stomach Un alessia (Sulfona ty to comments 6- problems ity of mide adverse 00:00: [place] Antibiot reaction 00 Medica l ics) s Branch Sulfa Propensi Active Other - See Stomach Un alessia (Sulfona ty to comments 6-26 problems ity of mide adverse 00:00: [place] Antibiot reaction 00 Medica l ics) s Branch Penicill Propensi Active Hives 2016-0 Univer s in ty to 6-26 ity of adverse 00:00: [place] reaction 00 Medical s Branch chocolat Adverse Active Info Not Commo n e Reaction Available [facility] lactose Adverse Active Info Not Common Reaction Available [facility] gluten Adverse Active Info Not Common Reaction Available [facility] PCN Adverse Active hives Common Reaction [facility] SULPHA Adverse Active stomach Common Reaction upset [facility] Azithrom Adverse Active stomach Common ycin Reaction upset [facility] Amoxicil Adverse Active hives Common kristy Reaction [facility] pork Adverse Active Info Not Common Reaction Available [facility] Social History Social Habit Start Date Stop Date Quantity Comments Source History of tobacco Cigarette Smoker [facility] Exposure to 2022-11-16 2022-11-26 Not sure [facility] SARS-CoV-2 (event) 00:00:00 13:49:00 [facility] Alcohol intake 2020-06-29 2020-06-29 Current University of 00:00:00 00:00:00 non-drinker of [facility] alcohol Branch (finding) Tobacco use and 2020-06-29 2020-06-29 Smokeless Universit y of exposure 00:00:00 00:00:00 tobacco non-user [facility] dical [place] Cigarettes smoked 2020-06-29 2020-06-29 Univers ity of current (pack per 00:00:00 00:00:00 ) - Reported Branch Sex Ass[birth year] At [birth year] Universit y of 00:00:00 00:00:00 [facility] Smoking Status Start Date Stop Date Source Smokes tobacco daily 2020-06-29 00:00:00 Univers ity of [facility] Medications Ordered Filled Start Stop Current Ordering Indication Dosage Frequency Signature Comments Components Source Medication Medication Date Date Medication? Clinician (SIG) Name Name buPROPion Yes [id number] 300mg Take 1 U nivers XL 300 mg 2-13 tablet by ity o f 24 hr 00:00: mouth in [place] tablet 00 the Medical morning. Branch buPROPion Yes [id number] 300mg Take 1 U nivers XL 300 mg 2-13 tablet by ity o f 24 hr 00:00: mouth in [place] tablet 00 the Medical morning. Branch buPROPion 2021-10 Yes [id number] 150mg Take 1 U nivers XL 1-07 tablet by ity of (WELLBUTRIN 00:00: mouth [place] XL[place] 150 mg 00 the Medical 24 hr morning. Branch tablet buPROPion 2021-10 Yes [id number] 150mg Take 1 U nivers XL 1-07 tablet by ity of (WELLBUTRIN 00:[place]: [place] XL[place] 150 mg 00 the Medical 24 hr morning. Branch tablet buPROPion 2021-10 Yes [id number] 150mg Take 1 U nivers XL 1-07 tablet by ity of (WELLBUTRIN 00:[place]: [place] XL[place] 150 mg 00 the Medical 24 hr morning. Branch tablet buPROPion 2021-10 Yes [id number] 150mg Take 1 U nivers XL 1-07 tablet by ity of (WELLBUTRIN 00:00: [place] XL[place] 150 mg 00 the Medical 24 hr morning. Branch tablet buPROPion 2021-10 Yes [id number] 150mg Take 1 U nivers XL 1-07 tablet by ity of (WELLBUTRIN 00:00: [place] XL[place] 150 mg 00 the Medical 24 hr morning. Branch tablet buPROPion 2021-10 Yes [id number] 150mg Take 1 U nivers XL 1-07 tablet by ity of (WELLBUTRIN 00:00: mouth [place] XL[place] 150 mg 00 the Medical 24 hr morning. Branch tablet buPROPion 2021-10 Yes [id number] 150mg Take 1 U nivers XL 1-07 tablet by ity of (WELLBUTRIN 00:00: mouth [place] XL[place] 150 mg 00 the Medical 24 hr morning. Branch tablet buPROPion 2021-10 Yes [id number] 150mg Take 1 U nivers XL 1-07 tablet by ity of (WELLBUTRIN 00:00: mouth [place] XL[place] 150 mg 00 the Medical 24 hr morning. Branch tablet buPROPion 2021-10 Yes [id number] 150mg Take 1 U nivers XL 1-07 tablet by ity of (WELLBUTRIN 00:00: [place] XL[place] 150 mg 00 the Medical 24 hr morning. Branch tablet buPROPion 2021-10- No [id number] 150mg Take 1 Univers XL 10-20 tablet by ity of (WELLBUTRIN 00:00: 00:00 mouth in [place] XL) 150 mg 00 :00 the Medical 24 hr morning. Branch tablet buPROPion 2021-10- No [id number] 150mg Take 1 Univers XL 10-20 tablet by ity of (WELLBUTRIN 00:00: 00:00 mouth [place] XL) 150 mg 00 :00 the Medical 24 hr morning. Branch tablet buPROPion 2021-10 Yes [id number] 100mg Take 1 U nivers SR 100 mg 0-05 tablet by ity o f [place] tablet 00:00: [place] the Medical morning. Branch escitalopra 2021-10 Yes [id number] 20mg Take 1 Univers m oxalate 0-05 tablet by ity o f 20 mg 00:00: mouth in [place] tablet 00 the Medical morning. Branch buPROPion 2021-10 Yes [id number] 100mg Take 1 U nivers SR 100 mg 0-05 tablet by ity o f [place] tablet 00:00: [place] 00 the Medical morning. Branch escitalopra 2021-10 Yes [id number] 20mg Take 1 Univers m oxalate 0-05 tablet by ity o f 20 mg 00:00: mouth in [place] tablet 00 the Medical morning. Branch buPROPion 2021-10 Yes [id number] 100mg Take 1 U nivers SR 100 mg 0-05 tablet by ity o f [place] tablet 00:00: [place] 00 the Medical morning. Branch escitalopra 2021-10 Yes [id number] 20mg Take 1 Univers m oxalate 0-05 tablet by ity o f 20 mg 00:00: mouth in [place] tablet 00 the Medical morning. Branch buPROPion 2021-10 Yes [id number] 100mg Take 1 U nivers SR 100 mg 0-05 tablet by ity o f [place] tablet 00:00: [place] 00 the Medical morning. Branch escitalopra 2021-10 Yes [id number] 20mg Take 1 Univers m oxalate 0-05 tablet by ity o f 20 mg 00:00: mouth in [place] tablet 00 the Medical morning. Branch escitalopra 2021-10 Yes [id number] 20mg Take 1 Univers m oxalate 0-05 tablet by ity o f 20 mg 00:00: mouth in [place] tablet 00 the Medical morning. Branch escitalopra 2021-10 Yes [id number] 20mg Take 1 Univers m oxalate 0-05 tablet by ity o f 20 mg 00:00: mouth in [place] tablet 00 the Medical morning. Branch escitalopra 2021-10 Yes [id number] 20mg Take 1 Univers m oxalate 0-05 tablet by ity o f 20 mg 00:00: mouth in [place] tablet 00 the Medical morning. Branch escitalopra 2021-10 Yes [id number] 20mg Take 1 Univers m oxalate 0-05 tablet by ity o f 20 mg 00:00: mouth in [place] tablet 00 the Medical morning. Branch escitalopra 2021-10 Yes [id number] 20mg Take 1 Univers m oxalate 0-05 tablet by ity o f 20 mg 00:00: mouth in [place] tablet 00 the Medical morning. Branch escitalopra 2021-10 Yes [id number] 20mg Take 1 Univers m oxalate 0-05 tablet by ity o f 20 mg 00:00: mouth in [place] tablet 00 the Medical morning. Branch escitalopra 2021-10 Yes [id number] 20mg Take 1 Univers m oxalate 0-05 tablet by ity o f 20 mg 00:00: mouth in [place] tablet 00 the Medical morning. Branch escitalopra 2021-10 Yes [id number] 20mg Take 1 Univers m oxalate 0-05 tablet by ity o f 20 mg 00:00: mouth in [place] tablet 00 the Medical morning. Branch escitalopra 2021-10 Yes [id number] 20mg Take 1 Univers m oxalate 0-05 tablet by ity o f 20 mg 00:00: mouth in [place] tablet 00 the Medical morning. Branch escitalopra 2021-10 Yes [id number] 20mg Take 1 Univers m oxalate 0-05 tablet by ity o f 20 mg 00:00: mouth in [place] tablet 00 the Medical morning. Branch escitalopra 2021-10 Yes [id number] 20mg Take 1 Univers m oxalate 0-05 tablet by ity o f 20 mg 00:00: mouth in [place] tablet 00 the Medical morning. [place] buPROPion 2022-1 2022- No [id number] 100mg Take 1 Univers SR 100 mg 0-05 - tablet by ity of SR tablet 00:00: 00:00 mouth in [place] 00 :00 the Medical morning. Branch buPROPion 2021-10- No [id number] 100mg Take 1 Univers SR 100 mg 0-05 - tablet by ity of SR tablet 00:00: 00:00 mouth in [place] 00 :00 the Medical morning. Branch buPROPion 2021-10- No [id number] 100mg Take 1 Univers SR 100 mg 0-05 08-20 tablet by ity of SR tablet 00:00: 00:00 mouth in [place] 00 :00 the Medical morning. Branch buPROPion Yes [id number] 150mg Take 1 U nivers XL 150 mg 5-28 tablet by ity o f 24 hr 00:00: mouth [place] tablet 00 daily. [facility] escitalopra Yes [id number] 20mg Take 1 Univers m oxalate 5-28 tablet by ity o f 20 mg 00:00: mouth [place] tablet 00 daily. [facility] Branch buPROPion Yes [id number] 150mg Take 1 U nivers XL 150 mg 5-28 tablet by ity o f 24 hr 00:00: mouth [place] tablet 00 daily. [facility] escitalopra Yes [id number] 20mg Take 1 Univers m oxalate 5-28 tablet by ity o f 20 mg 00:00: mouth [place] tablet 00 daily. [facility] buPROPion Yes [id number] 150mg Take 1 U nivers XL 150 mg 5-28 tablet by ity o f 24 hr 00:00: mouth [place] tablet 00 daily. [facility] Branch escitalopra Yes [id number] 20mg Take 1 Univers m oxalate 5-28 tablet by ity o f 20 mg 00:00: mouth [place] tablet 00 daily. [facility] Branch buPROPion Yes [id number] 150mg Take 1 U nivers XL 150 mg 5-28 tablet by ity o f 24 hr 00:00: mouth [place] tablet 00 daily. [facility] escitalopra Yes [id number] 20mg Take 1 Univers m oxalate 5-28 tablet by ity o f 20 mg 00:00: mouth [place] tablet 00 daily. [facility] buPROPion Yes [id number] 150mg Take 1 U nivers XL 150 mg 5-28 tablet by ity o f 24 hr 00:00: mouth [place] tablet 00 daily. [facility] Branch escitalopra Yes [id number] 20mg Take 1 Univers m oxalate 5-28 tablet by ity o f 20 mg 00:00: mouth [place] tablet 00 daily. [facility] Branch buPROPion 2021- No [id number] 150mg Take 1 Univers XL 150 mg 5-28 10-05 tablet by ity of 24 hr 00:00: 00:00 mouth [place] tablet 00 :00 daily. [facility] Branch escitalopra 2021- No [id number] 20mg Take 1 Univers m oxalate 5-28 10-05 tablet by ity of 20 mg 00:00: 00:00 mouth [place] tablet 00 :00 daily. [facility] buPROPion 2021- No [id number] 150mg Take 1 Univers XL 150 mg 5-28 10-05 tablet by ity of 24 hr 00:00: 00:00 mouth [place] tablet 00 :00 daily. [facility] escitalopra 2021- No [id number] 20mg Take 1 Univers m oxalate 5-28 10-05 tablet by ity of 20 mg 00:00: 00:00 mouth [place] tablet 00 :00 daily. [facility] escitalopra 2019-10 Yes [id number] 15mg Take 1.5 Univers m oxalate 0-14 tablets by ity of 10 mg 00:00: mouth [place] tablet 00 daily. [facility] Branch escitalopra 2019-10 Yes [id number] 15mg Take 1.5 Univers m oxalate 0-14 tablets by ity of 10 mg 00:00: mouth [place] tablet 00 daily. [facility] Branch escitalopra 2019-10 Yes [id number] 15mg Take 1.5 Univers m oxalate 0-14 tablets by ity of 10 mg 00:00: mouth [place] tablet 00 daily. [facility] escitalopra 2019-10 Yes [id number] 15mg Take 1.5 Univers m oxalate 0-14 tablets by ity of 10 mg 00:00: mouth [place] tablet 00 daily. [facility] escitalopra 2019-10- No [id number] 15mg Take 1.5 Univers m oxalate 0-14 05-28 tablets by ity of 10 mg 00:00: 00:00 mouth [place] tablet 00 :00 daily. [facility] escitalopra 2019-10- No [id number] 15mg Take 1.5 Univers m oxalate 0-14 05-28 tablets by ity of 10 mg 00:00: 00:00 mouth [place] tablet 00 :00 daily. [facility] Branch famotidine 2020- No 40mg Take 40 mg Univers 40 mg -16 -16 by mouth ity of tablet 20:34: 00:00 daily. [place] 51 :00 [facility] famotidine 2020- No 40mg Take 40 mg Univers 40 mg -16 -16 by mouth ity of tablet 20:34: 00:00 daily. [place] 51 :00 [facility] escitalopra Yes [id number] 10mg Take 1 Univers m oxalate 9-16 tablet by ity o f 10 mg 00:00: mouth [place] tablet 00 daily. [facility] Branch escitalopra Yes [id number] 10mg Take 1 Univers m oxalate 9-16 tablet by ity o f 10 mg 00:00: mouth [place] tablet 00 daily. Medical Branch escitalopra 2019- No [id number] 10mg Take 1 Univers m oxalate 9-16 10-14 tablet by ity of 10 mg 00:00: 00:00 mouth [place] tablet 00 :00 daily. [facility] escitalopra 2019- No [id number] 10mg Take 1 Univers m oxalate 9-16 10-14 tablet by ity of 10 mg 00:00: 00:00 mouth [place] tablet 00 :00 daily. [facility] omeprazole 2019-0 Yes 40mg Take 40 mg U nivers 40 mg 8-25 by mouth ity of capsule 00:00: daily. [place] 00 [facility] omeprazole 2019-0 Yes 40mg Take 40 mg U nivers 40 mg 8-25 by mouth ity of capsule 00:00: daily. [place] 00 [facility] Branch omeprazole 2020-0 2020- No 40mg Take 40 mg Univers 40 mg 8-25 10-14 by mouth ity of capsule 00:00: 00:00 daily. [place] 00 :00 [facility] omeprazole 2019-0 2020- No 40mg Take 40 mg Univers 40 mg 8-25 10-14 by mouth ity of capsule 00:00: 00:00 daily. [place] 00 :00 [facility] famotidine 2019-0 Yes 40mg Take 40 mg U nivers 40 mg 7-27 by mouth ity of tablet 14:58: daily. [place] [address] Medical Branch famotidine 2019-0 Yes 40mg Take 40 mg U nivers 40 mg 7-27 by mouth ity of tablet 14:58: daily. [place] [address] Medical Branch pantoprazol 2019-0 Yes [id number] 40mg Take 1 Univers e 7-27 tablet by ity of (PROTONIX) 00:00: mouth [place] 40 mg EC 00 daily. Medical tablet Branch pantoprazol 2019-0 Yes [id number] 40mg Take 1 Univers e 7-27 tablet by ity of (PROTONIX) 00:00: mouth [place] 40 mg EC 00 daily. Medical tablet Branch pantoprazol 0 2020- No [id number] 40mg Take 1 Univers e 7-10 07-16 tablet by ity of (PROTONIX) 00:00: 00:00 mouth [place] 40 mg EC 00 :00 daily. Medical tablet Branch pantoprazol 2020- No [id number] 40mg Take 1 Univers e -10 07-16 tablet by ity of (PROTONIX) 00:00: 00:00 mouth [place] 40 mg EC 00 :00 daily. Medical tablet Branch acetaminoph Yes [id number] /2 - 1 Univers en-codeine 5-05 tab Every ity of 300-30 mg 00:00: 4hrs as [place] tablet 00 needed for Medical pain or Branch cough requiring narcotic acetaminoph Yes [id number] 2 - 1 Univers en-codeine 5-05 tab Every ity of 300-30 mg 00:00: 4hrs as [place] tablet 00 needed for Medical pain or Branch cough requiring narcotic acetaminoph 2020- No [id number] /2 - 1 Univers en-codeine 5-05 09-16 tab Every ity of 300-30 mg 00:00: 00:00 4hrs [place] tablet 00 :00 needed for Medical pain or Branch cough requiring narcotic acetaminoph 2020- No [id number] 2 - 1 Univers en-codeine 5-05 09-16 tab Every ity of 300-30 mg 00:00: 00:00 4hrs [place] tablet 00 :00 needed for Medical pain or Branch cough requiring narcotic predniSONE Yes Univers 20 mg 5-03 ity of tablet 00:00: [place] 00 Medical Branch predniSONE 2018-0 Yes Univers 20 mg 5-03 ity of tablet 00:00: [place] 00 Medical Branch predniSONE 2017-0 2020- No Univer s 20 mg 5-03 - ity of tablet 00:00: 00:00 [place] 00 :00 Medical Branch predniSONE 2018-0 2020- No Univer s 20 mg 5-06-29 ity of tablet 00:00: 00:00 [place] 00 :00 Medical Branch Immunizations Ordered Immunization Filled Immunization Date Status Commen ts Source Name Name Gardasil, HPV Gardasil, HPV 2019-11-03 Completed Common S pirit quadrivalent, IM, quadrivalent, IM, 00:00:00 [facility] Vital Signs Vital Name Observation Time Observation Value Comments Source Systolic blood 2022-11-26 19:53:00 126 mm[Hg] Univer sity of pressure [facility] Diastolic blood 2022-11-26 19:53:00 92 mm[Hg] Unive rsity of [facility] Heart rate 2022-11-26 19:53:00 97 /min Universi ty of [facility] Body height 2022-11-26 19:53:00 170.2 cm Universi ty of [facility] Body weight 2022-11-26 19:53:00 120.657 kg Universi ty of [facility] BMI 2022-11-26 19:53:00 41.66 kg/m2 Universi ty of [facility] Systolic blood 2022-10-17 19:03:00 124 mm[Hg] Univer sity of pressure [facility] Diastolic blood 2022-10-17 19:03:00 87 mm[Hg] Unive rsity of pressure [facility] Heart rate 2022-10-17 19:03:00 113 /min Universi ty of [facility] Body height 2022-10-17 19:03:00 170.2 cm Universi ty of [facility] Body weight 2022-10-17 19:03:00 120.203 kg Universi ty of [facility] BMI 2022-10-17 19:03:00 41.50 kg/m2 Universi ty [facility] Oxygen saturation in 2022-10-17 19:03:00 95 /min [facility] Arterial blood by [facility] Pulse oximetry Branch Systolic blood 2022-08-20 15:39:00 135 mm[Hg] Univer sity of pressure [place] Medical Branch Diastolic blood 2022-08-20 15:39:00 94 mm[Hg] Unive rsity of pressure [facility] Branch Heart rate 2022-08-20 15:39:00 93 /min Universi ty of [place] Medical [place] Body height 2022-08-20 15:39:00 170.2 cm Universi ty of [place] [facility] Branch Body weight 2022-08-20 15:39:00 115.214 kg Universi ty of [place] [facility] Branch BMI 2022-08-20 15:39:00 39.78 kg/m2 Universi ty of [place] [facility] Branch Systolic blood 2022-07-18 16:10:00 135 mm[Hg] Univer sity of pressure [place] Medical Branch Diastolic blood 2022-07-18 16:10:00 95 mm[Hg] Unive rsity of pressure [facility] Heart rate 2022-07-18 16:10:00 91 /min Universi ty of [place] [facility] Branch Body height 2022-07-18 16:10:00 170.2 cm Universi ty of [place] [facility] Body weight 2022-07-18 16:10:00 118.842 kg Universi ty of [place] [facility] BMI 2022-07-18 16:10:00 41.04 kg/m2 Universi ty of [place] [facility] Systolic blood 2021-03-10 15:19:00 126 mm[Hg] Univer sity of pressure [facility] Branch Diastolic blood 2021-03-10 15:19:00 86 mm[Hg] Unive rsity of pressure [facility] Branch Heart rate 2021-03-10 15:19:00 86 /min Universi ty of [place] [facility] Body height 2021-03-10 15:19:00 170.2 cm Universi ty of [place] [facility] Body weight 2021-03-10 15:19:00 104.327 kg Universi ty of [place] [facility] BMI 2021-03-10 15:19:00 36.02 kg/m2 Universi ty of [place] [facility] Systolic blood 2020-07-27 20:03:00 133 mm[Hg] Univer sity of pressure [place] [facility] Diastolic blood 2020-07-27 20:03:00 84 mm[Hg] Unive rsity of pressure [facility] Heart rate 2020-07-27 20:03:00 89 /min Universi ty of [place] Medical [place] Body weight 2020-07-27 20:03:00 99.338 kg Universi ty of [place] [facility] Branch BMI 2020-07-27 20:03:00 34.30 kg/m2 Universi ty of [facility] Branch Systolic blood 2020-06-29 20:33:00 135 mm[Hg] Univer sity of pressure [facility] Branch Diastolic blood 2020-06-29 20:33:00 89 mm[Hg] Unive rsity of pressure [place] [facility] Heart rate 2020-06-29 20:33:00 89 /min Universi ty of [facility] Body temperature 2020-06-29 20:33:00 37.06 [place] Univ ersity of [facility] Body height 2020-06-29 20:33:00 170.2 cm Universi ty of [place] Medical [place] Body weight 2020-06-29 20:33:00 98.884 kg Universi ty of [facility] Branch BMI 2020-06-29 20:33:00 34.14 kg/m2 Universi ty of [facility] Branch Systolic blood 2020-05-09 14:56:00 115 mm[Hg] Univer sity of pressure [facility] Branch Diastolic blood 2020-05-09 14:56:00 70 mm[Hg] Unive rsity of pressure [facility] Branch Heart rate 2020-05-09 14:56:00 67 /min Universi ty of [facility] Body temperature 2020-05-09 14:56:00 37.39 [place] Univ ersity of [facility] Respiratory rate 2020-05-09 14:56:00 18 /min Univ ersity of [facility] Body height 2020-05-09 14:56:00 170.2 cm Universi ty of [facility] Body weight 2020-05-09 14:56:00 103.42 kg Universi ty of [facility] BMI 2020-05-09 14:56:00 35.71 kg/m2 Universi ty of [facility] Oxygen saturation in 2020-05-09 14:56:00 99 /min [facility] Arterial blood by [facility] Pulse oximetry Branch Procedures Procedure Date / Time Performed Performing Clinician [facility] e CONSENT/REFUSAL FOR 2022-11-26 19:51:40 Doctor Unassigned, No Un [facility] DIAGNOSIS AND Name Medical Branch TREATMENT ASSIGNMENT OF BENEFITS 2022-08-20 15:36:42 Doctor Unassigned, No [facility] Name Medical Branch EXTERNAL PROVIDER 2022-01-09 05:01:00 Doctor Unassigned, No [facility] RECORDS [facility] CONSENT/REFUSAL FOR 2021-11-08 16:55:51 Doctor Unassigned, [facility] Medical [place] TREATMENT Encounters Start End Encounter Admission Attending Care Care Encounter Source Date/Time Date/Time Type Type Clinicians Facility Department ID 2021-11-08 Outpatient Sohan DESTINEY [facility] [id number] Common 11:02:10 Leela [id number] [facility] 2023-02-25 2023-02-25 Outpatient Danilo GLEASON [facility] [id number] Univers 13:00:00 13:00:00 GLORIA [place] [facility] 2023-02-22 2023-02-22 Outpatient FOG_Burke_R AOSM AOSM [id number] Lissette 00:00:00 00:00:00 Jonathon [id number] [facility] 2023-01-16 2023-01-16 Outpatient R SHOSHANA OQUENDO [facility] [id number] Univers 13:00:00 13:00:00 SHOSHANA OQUENDO [place] [facility] 2022-11-26 2022-11-26 [facility] 1.2.840.114 [id number] Univers 14:00:00 14:15:00 Visit [facility] [id number] it y Hans [place] [id number] Shadi as CAIN?BLEA [phone] Vt dical [address] MEDICAL OFFICE BUILDING 2022-11-26 2022-11-26 Outpatient R VICTORINO [facility] [id number] Univers 14:00:00 14:00:00 GLORIA [facility] 2022-11-26 2022-11-26 Orders Doctor MAHMOOD 1.2.840.114 [id number] Univers 00:00:00 00:00:00 Only Unassigned, LETICIA [id number] ity [place] [facility] [id number] Shadi as [phone] [address] 2022-11-18 2022-11-18 Patient Shoshana Oquendo [place] 1.2.840.114 [id number] Univers 00:00:00 00:00:00 Secure [facility] HEALTH [id number] ity [facility] [id number] Shadi as CAIN?BLEA [phone] [address] OFFICE [facility] 2022-10-20 2022-10-20 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114 [id number] Univers 13:00:00 13:49:29 Visit HEALTH 350.1.13.10 it y of [facility] [id number] Shadi as CAIN?BLEA [phone] [address] OFFICE [facility] 2022-10-17 2022-10-17 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 [id number] it y of Edward [place] [id number] Shadi as CAIN?BLEA [phone] Vt nani [address] OFFICE [facility] 2022-08-20 2022-08-20 Orders Doctor ELA 1.2.840.114 [id number] Univers 00:00:00 00:00:00 Only Unassigned, LETICIA [id number] ity of [place] [facility] [id number] Shadi as [phone] [address] 2022-08-02 2022-08-02 Telephone [facility] 1.2.840.114 [id number] Univers 00:00:00 00:00:00 [facility] [id number] it y of [place] [id number] Shadi as CAIN?BLEA [phone] [address] OFFICE [facility] 2022-07-18 2022-07-18 Outpatient R [facility] [id number] Univers 13:30:00 13:30:00 [facility] 2022-07-18 2022-07-18 Office [facility] 1.2.840.114 [id number] Univers 11:15:00 11:30:00 Visit [facility] [id number] it y of [place] [id number] Shadi as CAIN?BLEA [phone] [address] OFFICE [facility] 2022-07-18 2022-07-18 Outpatient R [facility] [id number] Univers 11:15:00 11:15:00 GLORIA y [facility] 2022-01-09 2022-01-09 Orders Doctor ELA 1.2.840.114 [id number] Univers 00:00:00 00:00:00 Only Unassigned, LETICIA [id number] ity of [place] [facility]PITAL [id number] Shadi as [phone] [address] 2021-11-08 2021-11-08 Laboratory Only, Ang Db Test [place] 1.2.8 40.114 [id number] Univers 10:45:00 11:00:[address] [facility] [id number] ity of [facility] [id number] Shadi as CAIN?BLEA [phone] Vt dical KNEY [address] [place] MEDICAL OFFICE BUILDING 2021-11-08 2021-11-08 Outpatient R GISSEL [facility] [id number] Univers 10:45:00 10:45:00 [facility] 2021-11-08 2021-11-08 Orders Doctor ELA 1.2.840.114 [id number] Univers 00:00:00 00:00:00 Only Unassigned, LETICIA [id number] ity of [place] [facility] [id number] Shadi as [phone] [address] 2021-04-07 2021-04-07 Outpatient R VICTORINO [facility] [id number] Univers 10:00:00 10:00:00 [facility] 2021-03-10 2021-03-10 Office [facility] 1.2.840.114 [id number] Univers 10:13:12 10:28:12 Visit [facility] [id number] it y of [place] [id number] Shadi as Professio [phone] Vt dical [facility] [address] [place] Office [facility] 2021-03-10 2021-03-10 Outpatient R VICTORINO [facility] [id number] Univers 10:15:00 10:15:00 GLORIA erickson [facility] 2021-01-03 2021-01-03 [facility] 1.2.840.114 [id number] Univers 00:00:00 00:00:00 [facility] 350.1.13.10 i ty of [facility] [id number] [phone] [address] 2020-11-23 2020-11-23 Outpatient R VICTORINO [facility] [id number] Univers 10:15:00 10:15:00 [facility]IA [facility] 2020-08-24 2020-08-24 Outpatient R TEOFILOALEXANDREA [facility] [id number] Univers 13:15:00 13:15:00 [facility] 2020-08-23 2020-08-23 Telephone [facility] 1.2.840.114 [id number] Univers 00:00:00 00:00:00 [facility] [id number] it y of [place] [id number] Shadi as Professio [phone] [address] Office [facility] 2020-07-27 2020-07-27 [facility] 1.2.840.114 [id number] Univers 14:56:19 15:11:19 Visit [facility] [id number] it y of [place] [id number] Shadi as Professio [phone] [address] Office [facility] 2020-07-27 2020-07-27 [facility] [id number] Univers 15:00:00 15:00:00 [facility] 2020-06-29 2020-06-29 [facility] 1.2.840.114 [id number] Univers 15:26:03 15:58:52 Visit [facility] [id number] it y of [place] [id number] Shadi as Professio [phone] [address] Office [facility] 2020-06-29 2020-06-29 Outpatient R TEOFILOALEXANDREA [facility] [id number] Univers 15:30:00 15:30:00 GLORIA [facility] 2020-06-24 2020-06-24 Outpatient [facility] [id number] Univers 13:30:00 13:30:00 [facility] 2020-06-24 2020-06-24 [facility] [id number] [facility] 09:30:00 09:30:00 GLORIA chavarria [facility] 2020-06-08 2020-06-08 Telephone Victorino [facility] 1.2.840.114 [id number] Univers 00:00:00 00:00:00 [facility] [id number] it y of [place] [id number] Shadi as Professio [phone] [address] Office Building [facility] 2020-05-09 2020-05-09 Urgent Pob1, Acute Care Clinic [place] 1. 2.840.114 [id number] [facility] 09:48:24 10:33:47 Elena Richardson [facility] [id number] ity manjinder [place] [id number] Shadi as Professio [phone] [address] Office Building [facility] 2020-05-09 2020-05-09 Outpatient Danilo CALHOUN [facility] [id number] [facility] 09:40:00 09:40:00 ELENA chavarria [facility] 2019-11-03 2019-11-03 Outpatient [id number] Common 14:00:00 14:00:00 [facility] Results This patient has no known results.
[2023-04-08 12:27] LABS: Specific Gravity 1.019 (1.005-1.030)
[2023-04-08 12:35] LABS: Specific Gravity 1.019 (1.005-1.030); Urine Bacteria >50 /HPF (<20); Urine Bilirubin NEGATIVE (Negative); Urine Blood Negative (Negative); Urine Clarity Turbid (Clear); Urine Color Yellow (Yellow); Urine Glucose NEGATIVE (Negative); Urine Mucus 1+ /HPF (None Seen); Urine Protein NEGATIVE (Negative); Urine Urobilinogen Normal (Normal)
--- NOTE | 2023-04-08 13:38 | ER ---
Nurse's Notes [facility] Name: Remington Correia Age: 28 yrs Sex: Female : 1995 Arrival Date: 04/08/2023 Time: 11:53 Bed 12 Private MD: Diagnosis: Low back pain Presentation: 04/08 11:58 Chief complaint: Patient states: Mid/lower back pain for a couple days. Denies injury. nj1 Getting worse. Has tried advil with no relief, last dose was yesterday. Coronavirus screen: Vaccine status: Patient reports receiving the 2nd dose of the covid vaccine. Ebola Screen: Patient denies travel to an Ebola-affected area in the 21 days before illness onset. Initial Sepsis Screen: Does the patient meet any 2 criteria? No. Patient's initial sepsis screen is negative. Does the patient have a suspected source of infection? No. Patient's initial sepsis screen is negative. Risk Assessment: Do you want to hurt yourself or someone else? Patient reports no desire to harm self or others. Onset of symptoms was April 06, 2023. 11:58 Method Of Arrival: Ambulatory [facility] 11:58 Acuity: RAMON 3 nj1 Triage Assessment: 12:17 General: Appears in no apparent distress. uncomfortable, Behavior is calm, cooperative. cm10 Musculoskeletal: No deficits noted. Reports pain in back. Historical: - Allergies: 12:02 Amoxicillin; nj1 12:02 Azithromycin; az1 12:02 PENICILLINS; az1 12:02 Sulfa (Sulfonamide Antibiotics); az1 - PMHx: 12:02 depressive disorder; Bipolar disorder; [facility] - PSHx: 12:02 left knee; nj1 - Immunization history:: Client reports receiving the 2nd dose of the Covid vaccine. - Social history:: Smoking status: Patient denies any tobacco usage or history of. Screenin:16 [facility] ED Fall Risk Assessment (Adult) History of falling in the last 3 months, cm10 including since admission No falls in past 3 months (0 pts) Confusion or Disorientation No (0 pts) Intoxicated or Sedated No (0 pts) Impaired Gait No (0 pts) Mobility Assist Device Used No (0 pt) Altered Elimination Score/Fall Risk Level 0 - 2 = Low Risk Oriented to surroundings, Maintained a safe environment. Abuse screen: Denies threats or abuse. Denies injuries from another. Nutritional screening: No deficits noted. Tuberculosis screening: No symptoms or risk factors identified. Assessment: 12:16 Pain: Complains of pain in back. Neuro: No deficits noted. Level of Consciousness is cm10 awake, alert, Oriented to person, place, time, situation. Respiratory: No deficits noted. Airway is patent Respiratory effort is even, unlabored, Respiratory pattern is regular, symmetrical. Vital Signs: 11:58 BP 142 / 89; Pulse 90; Resp 18; Temp 98.3(O); Pulse Ox 99% ; Weight 122.47 kg; Height 5 nj1 ft. 7 in. ; Pain 9/10; 13:58 BP 121 / 88; Pulse 87; Resp 16; Pulse Ox 99% on R/A; Pain 5/10; cm10 11:58 Body Mass Index 42.29 (122.47 kg, 170.18 cm) nj1 11:58 Pain Scale: Adult nj1 13:58 Pain Scale: Adult cm10 ED Course: 11:56 Patient arrived in ED. rg4 11:56 Drew Godwin MD is Attending Physician. bs3 12:01 Triage completed. nj1 12:03 Arm band placed on right wrist. nj1 12:06 Daniela Rodriguez, LUCI is Primary Nurse. cm10 12:15 Urinalysis w/ reflexes Sent. cm10 12:16 Test, Urine Sent. cm10 12:17 Patient has correct armband on for positive identification. Bed in low position. Call cm10 light in reach. Side rails up X2. Warm blanket given. 12:17 No provider procedures requiring assistance completed. cm10 12:31 ED physician to see patient. cm10 13:55 Patient did not have IV access during this emergency room visit. cm10 Administered Medications: 13:46 Not Given (Pt drove): Cyclobenzaprine PO 10 mg PO once cm10 13:50 Drug: Ketorolac IM 30 mg Route: IM; Site: left deltoid; cm10 13:59 Follow up: Response: No adverse reaction cm10 13:51 Drug: Lidoderm Topical Patch 5 % (700 mg/patch) 2 patches Route: Topical; Site: cm10 affected area; Medication: 12:17 VIS not applicable for this client. cm10 Outcome: 13:37 Discharge ordered by . bs3 13:55 Discharged to home ambulatory, with family. cm10 13:55 Condition: good 13:55 Discharge instructions given to patient, Instructed on discharge instructions, follow up and referral plans. medication usage, Demonstrated understanding of instructions, follow-up care, medications, Prescriptions given X 2. 14:07 Patient left the ED. cm10 Signatures: Ashley Diop rg4 Drew Godwin MD MD bs3 Sri Landry RN RN nj1 Daniela Rodriguez RN RN cm10
--- NOTE | 2023-04-08 13:38 | EDPHYS ---
Physician Documentation [facility] Name: Remington Correia Age: 28 yrs Sex: Female : 1995 Arrival Date: 04/08/2023 Time: 11:53 Bed 12 Private MD: ED Physician Drew Godwin HPI: 04/08 13:24 This 28 yrs old Female presents to ER via Ambulatory with complaints of Back bs3 Pain. 13:24 28-year-old female history of bipolar disorder, recently treated for urinary tract bs3 infection with ciprofloxacin presents with back pain bilateral worse with movement better when standing up no associated nausea vomiting urinary symptoms no chest pain no shortness of breath no abdominal pain denies any trauma nothing seems to make the pain worse she has never had it before no urinary or bowel incontinence no numbness tingling or weakness in her extremities no fevers or chills. Historical: - Allergies: 12:02 Amoxicillin; nj1 12:02 Azithromycin; nj1 12:02 PENICILLINS; nj1 12:02 Sulfa (Sulfonamide Antibiotics); nj1 - PMHx: 12:02 depressive disorder; Bipolar disorder; nj1 - PSHx: 12:02 left knee; nj1 - Immunization history:: Client reports receiving the 2nd dose of the Covid vaccine. - Social history:: Smoking status: Patient denies any tobacco usage or history of. ROS: 13:24 Constitutional: Negative for fever, chills bs3 13:24 All other systems are negative. Exam: 13:24 Constitutional: This is a well developed, well nourished patient who is awake, alert, bs3 and in no acute distress. Head/Face: Normocephalic, atraumatic. Eyes: Pupils equal round and reactive to light, extra-ocular motions intact. Lids and lashes normal. ENT: mmm, no posterior phyarngeal erythema Neck: Trachea midline, no thyromegaly, no neck stiffness Chest/axilla: Normal chest wall appearance and motion. Nontender with no deformity. No lesions are appreciated. Cardiovascular: Regular rate and rhythm with a normal S1 and S2. symmetric pulses in upper extremities Respiratory: Lungs have equal breath sounds bilaterally, clear to auscultation, no respiratory distress Abdomen/GI: Soft, non-tender, no rebound or guarding Back: Paraspinal pain bilaterally no CVA tenderness MS/ Extremity: Pulses equal, no cyanosis. Neurovascular intact. Full, normal range of motion. Neuro: Awake and alert, GCS 15, oriented to person, place, time, and situation. Cranial nerves II-XII grossly intact. Motor strength 5/5 in all extremities. Sensory grossly intact. Psych: Awake, alert, with orientation to person, place and time. Behavior, mood, and affect are within normal limits. Vital Signs: 11:58 BP 142 / 89; Pulse 90; Resp 18; Temp 98.3(O); Pulse Ox 99% ; Weight 122.47 kg; Height 5 nj1 ft. 7 in. ; Pain 9/10; 13:58 BP 121 / 88; Pulse 87; Resp 16; Pulse Ox 99% on R/A; Pain 5/10; cm10 11:58 Body Mass Index 42.29 (122.47 kg, 170.18 cm) nj1 11:58 Pain Scale: Adult nj1 13:58 Pain Scale: Adult cm10 MDM: 11:56 Patient medically screened. bs3 13:24 Data reviewed: vital signs, nurses notes. ED course: We will check UA and reassess her bs3 symptoms are consistent with musculoskeletal pain and etiology for urinalysis was negative for and she had bacteria without other signs of a urinary tract infection will treat for musculoskeletal pain I considered kidney stone however its not consistent with her presentation her pain is bilateral positional we will trial medication advised outpatient follow-up. 13:35 ED course: Discussed the case with the patient and we discussed risks and benefits of bs3 CT given her age and my pretest probability patient agreed to defer this at this point time instructed follow-up with her primary care doctor and return with persistent symptoms of the last more than a week or any other symptoms. 04/08 11:57 Order name: Test, Urine; Complete Time: 12:56 bs3 04/08 11:57 Order name: Urinalysis w/ reflexes; Complete Time: 12:56 bs3 Administered Medications: 13:46 Not Given (Pt drove): Cyclobenzaprine PO 10 mg PO once cm10 13:50 Drug: Ketorolac IM 30 mg Route: IM; Site: left deltoid; cm10 13:59 Follow up: Response: No adverse reaction cm10 13:51 Drug: Lidoderm Topical Patch 5 % (700 mg/patch) 2 patches Route: Topical; Site: cm10 affected area; Disposition Summary: 04/08/23 13:37 Discharge Ordered Location: Home bs3 Problem: new bs3 Symptoms: have improved bs3 Condition: Stable bs3 Diagnosis - Low back pain bs3 Followup: bs3 - With: Private Physician - When: 2 - 3 days - Reason: Re-evaluation by your physician Discharge Instructions: - Discharge Summary Sheet bs3 - Acute Back Pain, Adult bs3 - Pain Without a Known Cause bs3 Forms: - Work release form bs3 - Medication Reconciliation Form bs3 - Thank You Letter bs3 - Antibiotic Education bs3 - Prescription Opioid Use bs3 - [email or web address] bs3 Prescriptions: - meloxicam 15 mg Oral tablet - take 1 tablet by ORAL route daily for 14 days; 4 tablet; Refills: 0, Product bs3 Selection Permitted - Cyclobenzaprine 10 mg Oral Tablet - take 1 tablet by ORAL route every 8 hours As needed; 30 tablet; Refills: 0, bs3 Product Selection Permitted Signatures: Dispatcher [employer] Drew Dill MD MD bs3 Sri Landry RN RN nj1 Daniela Rodriguez RN RN cm10
[2023-04-08] MEDS ORDERED: LIDOCAINE 4% PATCH ONE (13:54)
[2023-04-08] MEDS ORDERED: KETOROLAC 30 MG/ML INJ ONE (13:55)
[2023-04-08 14:17] VITALS: TEMP 98.3; O2SAT 99
[2023-04-08 14:19] VITALS: BP 121/88
== END 2023-04-08 14:07 | disposition home or self-care (01) ==
LOC: ER 11:53
DX: M54.50 Low back pain, unspecified (principal); Z88.0 Allergy status to penicillin; Z88.1 Allergy status to other antibiotic agents; Z88.2 Allergy status to sulfonamides
CPT/HCPCS: 81001; 81025; J2001

== ENCOUNTER 2024-10-21 01:32 | Emergency (ER) | payer BC, OTHER ==
--- OUTSIDE RECORDS SUMMARY | 2024-10-21 01:35 | XMS REPORT | Continuity of Care Document ---
Author Name Unknown Address [address] [facility] [address] [place] [address] [facility] thconnect Address [address] [facility]. [address] [place] [address] Care Team Providers Care Dermatologist Managing Partner Name Role Phone Gloria Gleason MD Primary Care Physician Gloria Gleason MD Attending Clinician + [phone] Julio Meneses Attending Clinician Unavailable SHOSHANA OQUENDO Attending Clinician Unavailable SHOSHANA OQUENDO Attending Clinician Unavailable GLORIA GLEASON Attending Clinician Froilan berry Doctor Unassigned, [place] Attending Clinician U navailable Pob, Adc Lab Main Attending Clinician Unavailnidhi e Lab, Ang - Db Attending Clinician Unavailable Only, Ang Db Test Attending Clinician UnavailVikki Hopkins MD Attending Clinician [phone] VIKKI CHAVIRA Attending Clinician Unavailable Darinel Melendez DO Attending Clinician [phone] Pob1, Acute Care Clinic Attending Clinician Unav ailElena Slater Attending Clinician [phone] ELENA SANTANA Attending Clinician Unavailable KNOW, DOES_NOT Admitting Clinician Unavailable Payers Payer Name Policy Type Policy Number Effective Date Expirati on Date Source [facility] [id number] 2017 00:00:00 2022 00:00:00 Problems Condition Name Condition Details Condition Category Status Onset Date Resolution Date Last Treatment Date Treating Clinician Comments Source Weight gain Weight gain Disease Active 10-21 00:00: 00 [facility] Tobacco abuse Tobacco abuse Disease Active 02-15 00:00: 00 [facility] Allergies, Adverse Reactions, Alerts Allergy Name Allergy Type Status Severity Reaction(s) Onset Date Inactive Date Treating Clinician Comments Source Penicill ins DA Active U UNKNOWN 06-19 00:00: 00 [facility] Sulfa (Sulfona mide Antibiot ics) DA Active U UNKNOWN 06-19 00:00: 00 [facility] azithrom ycin DA Active U UNKNOWN 06-19 00:00: 00 [facility] AZITHROM YCIN DRUG INGREDI Active Hives 04-08 00:00: 00 [facility] PENICILL IN DRUG INGREDI Active Hives 04-08 00:00: 00 [facility] SULFA (SULFONA MIDE ANTIBIOT ICS) Drug Class Active Other-Cmnt 04-08 00:00: 00 [facility] Azithrom ycin Propensi ty to adverse reaction s Active Hives 04-08 00:00: 00 [facility] Penicill in Propensi ty to adverse reaction s Active Hives 04-08 00:00: 00 [facility] Sulfa (Sulfona mide Antibiot ics) Propensi ty to adverse reaction s Active Other - See comments 04-08 00:00: 00 Stomach problems [facility] Sulfa (Sulfona mide Antibiot ics) Propensi ty to adverse reaction s Active Other - See comments 04-08 00:00: 00 Stomach problems [facility] Penicill in Propensi ty to adverse reaction s Active Hives 04-08 00:00: 00 [facility] Social History Social Habit Start Date Stop Date Quantity Comments Source History of tobacco use Cigarette Smoker [facility] Exposure to SARS-CoV-2 (event) 2022-11-16 00:00:00 2022-11-26 13:49:[address] [facility] History of Social function 2022-07-18 00:00:00 2022-07-18 00:00:00 [facility] Alcohol intake 2020-06-29 00:00:00 2020-06-29 00:00:00 Current non-drinker of alcohol (finding) [facility] Tobacco use and exposure 2020-06-29 00:00:00 2020-06-29 00:00:00 Smokeless tobacco non-user [facility] Cigarettes smoked current (pack per day) - Reported 2020-06-29 00:00:00 2020-06-29 00:00:00 [facility] Sex Assigned At 1995 00:00:00 1995 00:00:00 [facility] Smoking Status Start Date Stop Date Source Smokes tobacco daily 2020-06-29 00:00:00 [facility] Medications Ordered Medication Name Filled Medication Name Start Date Stop Date Current Medication? Ordering Clinician Indication Dosage Frequency Signature (SIG) Comments Components Source buPROPion XL 300 mg 24 hr tablet 11-26 00:00: 00 Yes [id number] 300mg Take 1 tablet by mouth in the morning. [facility] buPROPion XL (WELLBUTRIN XL) 150 mg 24 hr tablet 2021-10 00:00: 00 11-26 00:00 :00 No [id number] 150mg Take 1 tablet by mouth in the morning. [facility] escitalopra m oxalate 20 mg tablet 2021-10 00:00: 00 Yes [id number] 20mg Take 1 tablet by mouth in the morning. [facility] buPROPion SR 100 mg SR tablet 2021-10 00:00: 08-20 00:00 :00 No [id number] 100mg Take 1 tablet by mouth in the morning. [facility] buPROPion XL 150 mg 24 hr tablet 03-10 00:00: 00 07-18 00:00 :00 No [id number] 150mg Take 1 tablet by mouth daily. [facility] escitalopra m oxalate 20 mg tablet 03-10 00:00: 07-18 00:00 :00 No [id number] 20mg Take 1 tablet by mouth daily. [facility] escitalopra m oxalate 10 mg tablet 2019-10 00:00: 00 03-10 00:00 :00 No [id number] 15mg Take 1.5 tablets by mouth daily. [facility] famotidine 40 mg tablet 06-29 20:34: 51 06-29 00:00 :00 No 40mg Take 40 mg by mouth daily. [facility] escitalopra m oxalate 10 mg tablet 06-29 00:00: 00 07-27 00:00 :00 No [id number] 10mg Take 1 tablet by mouth daily. [facility] omeprazole 40 mg capsule 8 00:00: 00 07-27 00:00 :00 No 40mg Take 40 mg by mouth daily. [facility] famotidine 40 mg tablet 05-09 14:58: 17 Yes 40mg Take 40 mg by mouth daily. [facility] pantoprazol e (PROTONIX) 40 mg EC tablet 05-09 00:00: 00 06-29 00:00 :00 No [id number] 40mg Take 1 tablet by mouth daily. [facility] acetaminoph en-codeine 300-30 mg tablet 02-15 00:00: 00 06-29 00:00 :00 No [id number] 1/2 - 1 tab Every 4hrs as needed for pain or cough requiring narcotic [facility] predniSONE 20 mg tablet 02-13 00:00: 06-29 00:00 :[address] [facility] Vital Signs Vital Name Observation Time Observation Value Comments Christiano mendoza Systolic blood pressure 2022-11-26 19:53:00 126 mm[Hg] [place] [facility] Diastolic blood pressure 2022-11-26 19:53:00 92 mm[Hg] [facility] Heart rate 2022-11-26 19:53:00 97 /min [facility] Body height 2022-11-26 19:53:00 170.2 cm [facility] Body weight 2022-11-26 19:53:00 120.657 kg Univ [facility] BMI 2022-11-26 19:53:00 41.66 kg/m2 [facility] Systolic blood pressure 2022-10-17 19:03:00 124 mm[Hg] [place] [facility] Diastolic blood pressure 2022-10-17 19:03:00 87 mm[Hg] [facility] Heart rate 2022-10-17 19:03:00 113 /min [facility] Body height 2022-10-17 19:03:00 170.2 cm Univ [facility] Body weight 2022-10-17 19:03:00 120.203 kg [facility] BMI 2022-10-17 19:03:00 41.50 kg/m2 [facility] Oxygen saturation in Arterial blood by Pulse oximetry 2022-10-17 19:03:00 95 /min [facility] Systolic blood pressure 2022-08-20 15:39:00 135 mm[Hg] [facility] Diastolic blood pressure 2022-08-20 15:39:00 94 mm[Hg] [facility] Heart rate 2022-08-20 15:39:00 93 /min [facility] Body height 2022-08-20 15:39:00 170.2 cm [facility] Body weight 2022-08-20 15:39:00 115.214 kg Univ [facility] BMI 2022-08-20 15:39:00 39.78 kg/m2 [facility] Systolic blood pressure 2022-07-18 16:10:00 135 mm[Hg] [facility] Diastolic blood pressure 2022-07-18 16:10:00 95 mm[Hg] [facility] Heart rate 2022-07-18 16:10:00 91 /min Unive [facility] Body height 2022-07-18 16:10:00 170.2 cm [facility] Body weight 2022-07-18 16:10:00 118.842 kg [facility] BMI 2022-07-18 16:10:00 41.04 kg/m2 [facility] Systolic blood pressure 2021-03-10 15:19:00 126 mm[Hg] [facility] Diastolic blood pressure 2021-03-10 15:19:00 86 mm[Hg] [facility] Heart rate 2021-03-10 15:19:00 86 /min Unive [facility] Body height 2021-03-10 15:19:00 170.2 cm [facility] Body weight 2021-03-10 15:19:00 104.327 kg [facility] BMI 2021-03-10 15:19:00 36.02 kg/m2 [facility] Systolic blood pressure 2020-07-27 20:03:00 133 mm[Hg] [facility] Diastolic blood pressure 2020-07-27 20:03:00 84 mm[Hg] [facility] Heart rate 2020-07-27 20:03:00 89 /min Unive [facility] Body weight 2020-07-27 20:03:00 99.338 kg [facility] BMI 2020-07-27 20:03:00 34.30 kg/m2 [facility] Systolic blood pressure 2020-06-29 20:33:00 135 mm[Hg] [facility] Diastolic blood pressure 2020-06-29 20:33:00 89 mm[Hg] [facility] Heart rate 2020-06-29 20:33:00 89 /min Unive [facility] Body temperature 2020-06-29 20:33:[address] [facility] Body height 2020-06-29 20:33:00 170.2 cm [facility] Body weight 2020-06-29 20:33:00 98.884 kg [facility] BMI 2020-06-29 20:33:00 34.14 kg/m2 [facility] Systolic blood pressure 2020-05-09 14:56:00 115 mm[Hg] [facility] Diastolic blood pressure 2020-05-09 14:56:00 70 mm[Hg] [facility] Heart rate 2020-05-09 14:56:00 67 /min [facility] Body temperature 2020-05-09 14:56:[address] [facility] Respiratory rate 2020-05-09 14:56:00 18 /min [facility] Body height 2020-05-09 14:56:00 170.2 cm [facility] Body weight 2020-05-09 14:56:00 103.42 kg [facility] BMI 2020-05-09 14:56:00 35.71 kg/m2 [facility] Oxygen saturation in Arterial blood by Pulse oximetry 2020-05-09 14:56:00 99 /min [facility] Procedures Procedure Date / Time Performed Performing Clinicia n Source CONSENT/REFUSAL FOR DIAGNOSIS AND TREATMENT 2022-11-26 19:51:40 Doctor Unassigned, [place] [facility] ASSIGNMENT OF BENEFITS 2022-08-20 15:36:42 Docto r Unassigned, [place] [facility] EXTERNAL PROVIDER RECORDS 2022-01-09 05:01:00 Doctor Unassigned, [place] [facility] CONSENT/REFUSAL FOR DIAGNOSIS AND TREATMENT 2021-11-08 16:55:51 Doctor Unassigned, [place] [facility] Encounters Start Date/Time End Date/Time Encounter Type Admission Type Attending Clinicians Care Facility Care Department Encounter ID Source 2024-02-05 00:00:00 2024-02-05 00:00:00 Telephone Gloria Gleason [facility] [id number] 350.1.13.10 4.2.7.2.686 [id number] [facility] 2023-06-20 06:17:00 2023-06-20 06:17:00 Outpatient [facility] [id number] [facility] 2023-04-17 09:00:00 2023-04-17 09:00:00 Outpatient SHOSHANA MOMIN YU [facility] [id number] [facility] 2023-02-25 13:00:00 2023-02-25 13:00:00 Outpatient GLORIA ERNST [facility] [id number] [facility] 2023-01-16 13:00:00 2023-01-16 13:00:00 Outpatient SHOSHANA MOMIN YU [facility] [id number] [facility] 2022-11-26 14:00:00 2022-11-26 14:15:00 Office Visit Gloria Gleason [facility] BU[facility] [id number] 350.1.13.10 4.2.7.2.686 [id number] [facility] 2022-11-26 14:00:00 2022-11-26 14:00:00 Outpatient GLORIA ERNST [facility] [id number] [facility] 2022-11-26 00:00:00 2022-11-26 00:00:00 Orders Only Doctor Unassigned, [place] [facility] 1..840.114 350.1.13.10 4.2.7.2.686 [id number] [facility] 2022-11-18 00:00:00 2022-11-18 00:00:00 Patient Secure Shoshana Oquendo [facility] 1..840.114 350.1.13.10 4.2.7.2.686 [id number] [facility] 2022-10-20 10:00:00 2022-10-20 10:15:00 Infrastructure Analyst Visit Pob, Adc Lab Main Shoshana Oquendo [facility] NAL BUILDING [id number] 350.1.13.10 4.2.7.2.686 [id number] [facility] 2022-10-20 10:00:00 2022-10-20 10:00:00 Outpatient R SHOSHANA OQUENDO [facility] [id number] [facility] 2022-10-17 13:00:00 2022-10-17 13:49:29 Outpatient R SHOSHANA OQUENDO [facility] [id number] [facility] 2022-10-17 13:00:00 2022-10-17 13:49:29 Office Visit Shoshana Oquendo [facility] OFFICE BUILDING 1..840.114 350.1.13.10 4.2.7.2.686 [id number] [facility] 2022-10-17 13:30:00 2022-10-17 13:45:00 Infrastructure Analyst Visit Lab, Raghav Potter [facility] OFFICE BUILDING 1.2.840.114 350.1.13.10 4.2.7.2.686 [id number] [facility] 2022-08-20 09:45:00 2022-08-20 10:04:56 Outpatient R GLORIA GLEASON [facility] [id number] [facility] 2022-08-20 09:45:00 2022-08-20 10:04:56 Office Visit Gloria Gleason [facility] OFF[facility] BUILD[facility] 1.2.840.114 350.1.13.10 4.2.7.2.686 [id number] [facility] 2022-08-20 00:00:00 2022-08-20 00:00:00 Orders Only Doctor Unassigned, [place] [facility] 1.114 350.1.13.10 4.2.7.2.686 [id number] [facility] 2022-08-02 00:00:00 2022-08-02 00:00:00 Telephone Gloria Gleason [facility] 1.84114 350.1.13.10 4.2.7.2.686 [id number] [facility] 2022-07-18 13:30:00 2022-07-18 13:30:00 Outpatient GLORIA ERNST [facility] [id number] [facility] 2022-07-18 11:15:00 2022-07-18 11:30:00 Office Visit Victorino [facility] OFF[facility] BU[facility] 1.84.114 350.1.13.10 4.2.7.2.686 [id number] [facility] 2022-07-18 11:15:00 2022-07-18 11:15:00 Outpatient GLORIA ERNST [facility] [id number] [facility] 2022-01-09 00:00:00 2022-01-09 00:00:00 Orders Only Doctor Unassigned, [place] [facility] 1.114 350.1.13.10 4.2.7.2.686 [id number] [facility] 2021-11-08 10:45:00 2021-11-08 11:00:00 Laboratory Only Only, [facility] OFFICE BUILDING 1.84.114 350.1.13.10 4.2.7.2.686 [id number] [facility] 2021-11-08 10:45:00 2021-11-08 10:45:00 Outpatient VIKKI BALLESTEROS [facility] [id number] [facility] 2021-11-08 00:00:00 2021-11-08 00:00:00 Orders Only Doctor Unassigned, [place] [facility] 1.114 350.1.13.10 4.2.7.2.686 [id number] [facility] 2021-04-07 10:00:00 2021-04-07 10:00:00 Outpatient GLORIA ERNST [facility] [id number] [facility] 2021-03-10 10:13:12 2021-03-10 10:28:12 Office Visit Gloria Gleason [facility] Office [address] ..114 350.1.13.10 4.2.7.2.686 [id number] [facility] 2021-03-10 10:15:00 2021-03-10 10:15:00 Outpatient GLORIA ERNST [facility] [id number] [facility] 2021-01-03 00:00:00 2021-01-03 00:00:00 Patient Outreach Darinel Melendez [facility] ..114 350.1.13.10 4.2.7.2.686 [id number] [facility] 2020-11-23 10:15:00 2020-11-23 10:15:00 Outpatient GLORIA ERNST [facility] [id number] [facility] 2020-08-24 13:15:00 2020-08-24 13:15:00 Outpatient GLORIA ERNST [facility] [id number] [facility] 2020-08-23 00:00:00 2020-08-23 00:00:00 Telephone Gloria Gleason [facility] Office [facility] ..114 350.1.13.10 4.2.7.2.686 [id number] [facility] 2020-07-27 14:56:19 2020-07-27 15:11:19 Office Visit Gloria Gleason [facility] Office [facility] .114 350.1.13.10 4.2.7.2.686 [id number] [facility] 2020-07-27 15:00:00 2020-07-27 15:00:00 Outpatient R VICTORINOGLORIA [facility] [id number] [facility] 2020-06-29 15:26:03 2020-06-29 15:58:52 Office Visit Gloria Gleason [facility] .114 350.1.13.10 4.2.7.2.686 [id number] [facility] 2020-06-29 15:30:00 2020-06-29 15:30:00 Outpatient R VICTORINOGLORIA [facility] [id number] [facility] 2020-06-24 13:30:00 2020-06-24 13:30:00 Outpatient R VICTORINOGLORIA [facility] [id number] [facility] 2020-06-24 09:30:00 2020-06-24 09:30:00 Outpatient Danilo HADLEYGLORIA UREÑA [facility] [id number] [facility] 2020-06-08 00:00:00 2020-06-08 00:00:00 Telephone Gloria Gleason [facility] .114 350.1.13.10 4.2.7.2.686 [id number] [facility] 2020-05-09 09:48:24 2020-05-09 10:33:47 Urgent Care Pob1, Acute Care Clinic Elena Santana [facility] Office Building One .114 350.1.13.10 4.2.7.2.686 [id number] [facility] 2020-05-09 09:40:00 2020-05-09 09:40:00 Outpatient ELENA FARIAS [facility] [id number] [facility] Results Test Description Test Time Test Comments Results Result Co mments Source
[2024-10-21] MEDS ORDERED: PANTOPRAZOLE 40 MG INJ ONE (02:05)
[2024-10-21] MEDS ORDERED: MORPHINE 4 MG/ML SYR ONE (02:05)
[2024-10-21] MEDS ORDERED: METOCLOPRAMIDE 10 MG/2mL INJ ONE (02:05)
[2024-10-21] MEDS ORDERED: DICYCLOMINE HCL 10 MG CAP ONE (02:05)
[2024-10-21] MEDS ORDERED: FAMOTIDINE 20 MG/2 ML VIAL IV ONE (02:06)
[2024-10-21] MEDS ORDERED: NA CHLORIDE 0.9% 1,000 ML ONE (02:06)
[2024-10-21 02:34] LABS: Hemoglobin 15.5 g/dL (12.0-15.0); MCH 31.5 pg (27.0-35.0); MPV 9.1 fL (7.6-11.3); RBC Red Blood Cell Count 4.92 M/uL (3.86-4.86)
[2024-10-21 02:42] LABS: Albumin 4.2 g/dL (3.4-5.0); Albumin/Globulin Ratio 1.1 (1.1-1.8); Anion Gap 10.3 mEq/L (5.0-15.0); Bilirubin Total 1.2 mg/dL (0.2-1.0); Globulin 3.8 g/dL (2.3-3.5); Potassium 3.3 mEq/L (3.5-5.1)
[2024-10-21 02:53] LABS: Absolute Eosinophils 0.2 K/uL (0-0.5); Absolute Lymphocytes (CBC) 2.5 K/uL (0.7-4.9); Absolute Monocytes 0.5 K/uL (0.1-1.3); Absolute Neutrophil 4.8 K/uL (1.8-8.0); Basophils % 0.2 % (0-1.3); Eosinophils % 2.7 % (0-4.4); Lymphocytes % 30.9 % (15.3-44.8); MCHC 34.4 g/dL (32.0-36.0); MCV 91.6 fL (80-100); Monocytes % 5.9 % (3.3-12.3); Neutrophils % 60.3 % (41.7-73.7); Nucleated Red Blood Cells % 0.1 % (0-0); Platelets 241 thou/uL (152-406); Red Cell Distribution Width 12.7 % (12.1-15.2)
--- NOTE | 2024-10-21 03:21 | EDPHYS ---
Physician Documentation [facility] Name: Remington Correia Age: 29 yrs Sex: Female : 1995 Arrival Date: 10/21/2024 Time: 01:32 Bed 15 Private MD: ED Physician Dilshad Hensley HPI: 10/21 01:37 This 29 yrs old Female presents to ER via Unassigned with complaints of sp4 Abdominal Pain. 01:47 29-year-old female presents with complaint of epigastric abdominal pain starting at 8 sp4 AM today. Patient states she has long history of gastroesophageal reflux, she developed worsening epigastric pain today. Patient has history taken Protonix in the past currently she is on famotidine 40 mg as needed. She has had upper endoscopy in 2020 that reported gastritis without peptic ulcer disease. . 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 - Infectious Disease History:: Denies. - Family history:: not pertinent. - Social history:: Smoking status: unknown. ROS: 01:48 Constitutional: Negative for fever, chills, and weight loss, positive for epigastric sp4 pain and acid reflux 01:48 All other systems are negative, Exam: 01:48 Constitutional: This is a well developed, well nourished patient who is awake, alert, sp4 and in no acute distress. Head/Face: Normocephalic, atraumatic. Eyes: Pupils equal round and reactive to light, extra-ocular motions intact. Lids and lashes normal. Conjunctiva and sclera are not injected. Cornea within normal limits. Periorbital areas with no swelling, redness, or edema. ENT: Nares patent. No nasal discharge, no septal abnormalities noted. Tympanic membranes are normal and external auditory canals are clear. Oropharynx with no redness, swelling, or masses, exudates, or evidence of obstruction, uvula midline. Mucous membranes moist. Neck: Trachea midline, no thyromegaly or masses palpated, and no cervical lymphadenopathy. Supple, full range of motion without nuchal rigidity, or vertebral point tenderness. Chest/axilla: Normal chest wall appearance and motion. Nontender with no deformity. No lesions are appreciated. Cardiovascular: Regular rate and rhythm with a normal S1 and S2. No gallops, murmurs, or rubs. Normal PMI, no JVD. No pulse deficits. Respiratory: Lungs have equal breath sounds bilaterally, clear to auscultation and percussion. No rales, rhonchi or wheezes noted. No increased work of breathing, no retractions or nasal flaring. Abdomen/GI: Soft, with normal bowel sounds. No distension or tympany. No guarding or rebound. No evidence of tenderness throughout. Back: No spinal tenderness. No costovertebral tenderness. Skin: Warm, dry with normal turgor. Normal color with no rashes, no lesions, and no evidence of cellulitis. MS/ Extremity: Pulses equal, no cyanosis. Neurovascular intact. Full, normal range of motion. Neuro: Awake and alert, GCS 15, oriented to person, place, time, and situation. Cranial nerves II-XII grossly intact. Motor strength 5/5 in all extremities. Sensory grossly intact. Psych: Awake, alert, with orientation to person, place and time. Behavior, mood, and affect are within normal limits Vital Signs: 01:43 Weight 90.72 kg; Height 5 ft. 7 in. ; Pain 10/10; vc1 01:46 BP 127 / 92; Pulse 91; Resp 14; Temp 97; Pulse Ox 100% ; vc1 02:55 BP 113 / 57; Pulse 89; Resp 17; Pulse Ox 98% on R/A; Pain 3/10; rg5 01:43 Body Mass Index 31.32 (90.72 kg, 170.18 cm) vc1 01:43 Pain Scale: Adult vc1 02:55 Pain Scale: Adult rg5 Naren Coma Score: 01:48 Eye Response: spontaneous(4). Motor Response: obeys commands(6). Verbal Response: sp4 oriented(5). Total: 15. MDM: 01:54 Differential diagnosis: cholecystitis, Cholelithiasis, Dysmenorrhea, Endometriosis, sp4 gastritis. 01:55 Medical Screening Exam initiated sp4 03:19 Data reviewed: vital signs, nurses notes, lab test result(s), radiologic studies, sp4 ultrasound. Consideration of Admission/Observation Escalation of care including admission/observation considered. ED course: Pain has improved. Gallbladder ultrasound is negative. Will provide prescription for omeprazole 40 mg a day, Pepcid 40 mg a day also ondansetron as needed for nausea. Will recommend follow-up with manager of internal audit for Upper Endoscopy . 10/21 01:47 Order name: CBC with Diff; Complete Time: 03:15 sp4 10/21 01:47 Order name: CMP; Complete Time: 03:02 sp4 10/21 01:47 Order name: Lipase; Complete Time: 03:02 sp4 10/21 01:55 Order name: Test, Serum sp4 10/21 01:55 Order name: US Abdomen Limited sp4 10/21 01:47 Order name: IV Saline Lock; Complete Time: 02:23 sp4 10/21 01:47 Order name: Labs collected and sent; Complete Time: 02:23 sp4 Administered Medications: 02:22 Drug: Famotidine IVP 20 mg IVP once; dilute with 10 mL 0.9% NaCl; give over 2 minutes rg5 Route: IVP; Site: right antecubital; 02:48 Follow up: Response: No adverse reaction; Pain is decreased rg5 02:22 Drug: morphine IVP or IV 4 mg IVP once over 4 mins Route: IVP; Infused Over: 4 mins; rg5 Site: right antecubital; 02:49 Follow up: Response: No adverse reaction; Pain is decreased rg5 02:22 Drug: NS 0.9% IV 1000 ml IV at 1 bolus Per protocol; to be given as a bolus over 60 rg5 minutes Route: IV; Rate: 1 bolus; Site: right antecubital; 03:18 Follow up: IV Status: Completed infusion; IV Intake: 1000ml rg5 02:22 Drug: metoCLOPramide IVP 10 mg IVP once; over 1 to 2 minutes Route: IVP; Site: right rg5 antecubital; 02:48 Follow up: Response: No adverse reaction; Pain is decreased rg5 02:23 Drug: Pantoprazole IVP 80 mg IVP once Route: IVP; Site: right antecubital; rg5 02:49 Follow up: Response: No adverse reaction rg5 02:25 Drug: Dicyclomine PO 20 mg PO once Route: PO; rg5 02:48 Follow up: Response: No adverse reaction; Pain is decreased rg5 Disposition Summary: 10/21/24 03:21 Discharge Ordered Notes: Location: Home sp4 Problem: new sp4 Symptoms: have improved sp4 Condition: Stable sp4 Diagnosis - Acute epigastric pain, gastroesophageal reflux disease with exacerbation sp4 Followup: sp4 - With: Private Physician - When: 7 - 10 days - Reason: Recheck today's complaints Discharge Instructions: - Discharge Summary Sheet sp4 - Gastroesophageal Reflux Disease, Adult, [id number] sp4 Forms: - Patient Portal Instructions sp4 Prescriptions: - Pepcid 40 mg Oral tablet - take 1 tablet ORAL route every evening for 30 days; 30 tablet; Refills: 0, sp4 Product Selection Permitted - omeprazole 40 mg Oral capsule,delayed release (e.c.) - dissolve 1 capsule ORAL route once daily; 30 capsule; Refills: 0, Product sp4 Selection Permitted - ondansetron 8 mg Oral Tablet,disintegrating - take 1 tablet ORAL route every 6 hours PRN nausea; 30 tablet; Refills: 0, sp4 Product Selection Permitted 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 EDMS EDMS 01:47 01:47 COMPREHENSIVE METABOLIC PANEL+C.LAB.BRZ ordered. EDMS EDMS 01:47 01:47 LIPASE+C.LAB.BRZ ordered. EDMS EDMS
--- NOTE | 2024-10-21 03:21 | ER ---
Nurse's Notes [facility] Name: Remington Correia Age: 29 yrs Sex: Female : 1995 Arrival Date: 10/21/2024 Time: 01:32 Bed 15 Private MD: Diagnosis: Acute epigastric pain, gastroesophageal reflux disease with exacerbation Presentation: 10/21 01:41 Chief complaint: Patient states: Stomach pain with a history of GI problems. vc1 Coronavirus screen: Client denies travel out of the [place] in the last 14 days. At this time, the client does not indicate any symptoms associated with coronavirus-19. Ebola Screen: Patient negative for fever greater than or equal to 101.5 degrees Fahrenheit, and additional compatible Ebola Virus Disease symptoms Patient denies exposure to infectious person. Patient denies travel to an Ebola-affected area in the 21 days before illness onset. No symptoms or risks identified at this time. Initial Sepsis Screen: Does the patient meet any 2 criteria? No. Patient's initial sepsis screen is negative. Does the patient have a suspected source of infection? No. Patient's initial sepsis screen is negative. Risk Assessment: Do you want to hurt yourself or someone else? Patient reports no desire to harm self or others. Onset of symptoms is unknown. 01:41 Method Of Arrival: Ambulatory vc1 01:41 Acuity: RAMON 3 vc1 Triage Assessment: 01:49 General: Appears in no apparent distress. uncomfortable, obese, well groomed, well vc1 developed, well nourished, Behavior is calm, cooperative, appropriate for age. Pain: Complains of pain in abdomen Pain currently is 10 out of 10 on a pain scale. EENT: No deficits noted. No signs and/or symptoms were reported regarding the EENT system. Neuro: Level of Consciousness is awake, alert, obeys commands, Oriented to person, place, time, situation, Appropriate for age. Cardiovascular: Capillary refill < 3 seconds Patient's skin is warm and dry. Respiratory: Airway is patent Respiratory effort is even, unlabored, Respiratory pattern is regular, symmetrical. GI: Abdomen is round non-distended, Reports lower abdominal pain, upper abdominal pain, diarrhea, Pain is 10 out of 10 on a pain scale. : No deficits noted. No signs and/or symptoms were reported regarding the genitourinary system. Derm: Skin is intact, is healthy with good turgor, Skin is dry, Skin is normal, Skin temperature is warm. Musculoskeletal: Circulation, motion, and sensation intact. Range of motion: intact in all extremities. 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 - Infectious Disease History:: Denies. - Family history:: not pertinent. - Social history:: Smoking status: unknown. Screenin:42 [facility] ED Fall Risk Assessment (Adult) History of falling in the last 3 months, vc1 including since admission No falls in past 3 months (0 pts) Confusion or Disorientation No (0 pts) Intoxicated or Sedated No (0 pts) Impaired Gait No (0 pts) Mobility Assist Device Used No (0 pt) Altered Elimination No (0 pt) Score/Fall Risk Level 0 - 2 = Low Risk Oriented to surroundings, Maintained a safe environment, Educated pt \T\ family on fall prevention, incl call for assistance when getting out of bed. Abuse screen: Denies threats or abuse. Nutritional screening: No deficits noted. Tuberculosis screening: No symptoms or risk factors identified. Assessment: 01:45 General: Appears in no apparent distress. comfortable, Behavior is calm, cooperative, rg5 appropriate for age. 01:45 Pain: Complains of pain in abdomen Quality of pain is described as aching, crampy, Pain rg5 began 4 hours ago. Neuro: Level of Consciousness is awake, alert, obeys commands, Oriented to person, place, time. Cardiovascular: Heart tones S1 S2 Patient's skin is warm and dry. Respiratory: Airway is patent Trachea midline Respiratory effort is even, unlabored, Respiratory pattern is regular, symmetrical. GI: Abdomen is round non-distended, Bowel sounds present in left lower quadrant Abd is soft and non tender Reports lower abdominal pain, diarrhea. : No signs and/or symptoms were reported regarding the genitourinary system. EENT: No deficits noted. Derm: Skin is intact, Skin is dry, Skin is normal, Skin temperature is warm. Musculoskeletal: Circulation, motion, and sensation intact. Range of motion: intact in all extremities. 02:56 Reassessment: Patient and/or family updated on plan of care and expected duration. Pain rg5 level reassessed. Patient is alert, oriented x 3, equal unlabored respirations, skin warm/dry/pink. Patient states symptoms have improved. Vital Signs: 01:43 Weight 90.72 kg; Height 5 ft. 7 in. ; Pain 10/10; vc1 01:46 BP 127 / 92; Pulse 91; Resp 14; Temp 97; Pulse Ox 100% ; vc1 02:55 BP 113 / 57; Pulse 89; Resp 17; Pulse Ox 98% on R/A; Pain 3/10; rg5 01:43 Body Mass Index 31.32 (90.72 kg, 170.18 cm) vc1 01:43 Pain Scale: Adult vc1 02:55 Pain Scale: Adult rg5 Naren Coma Score: 01:48 Eye Response: spontaneous(4). Motor Response: obeys commands(6). Verbal Response: sp4 oriented(5). Total: 15. ED Course: 01:37 Patient arrived in ED. gm2 01:37 Dilshad Hensley MD is Attending Physician. sp4 01:39 Iron Alonzo, LUCI is Primary Nurse. rg5 01:41 Triage completed. vc1 01:42 Arm band placed on right wrist. vc1 01:45 Patient has correct armband on for positive identification. Call light in reach. Side rg5 rails up X 1. Door closed. Noise minimized. 01:45 No provider procedures requiring assistance completed. Inserted saline lock: 20 gauge rg5 in right Blood collected. Flushed with 10 mL NS. Patient maintains SpO2 saturation greater than 95% on room air. 02:34 US Abdomen Limited In Process Unspecified. EDMS 03:18 Provided Education on: post er care. rg5 03:28 IV discontinued, bleeding controlled, No redness/swelling at site. Pressure dressing rg5 applied. Administered Medications: 02:22 Drug: Famotidine IVP 20 mg IVP once; dilute with 10 mL 0.9% NaCl; give over 2 minutes rg5 Route: IVP; Site: right antecubital; 02:48 Follow up: Response: No adverse reaction; Pain is decreased rg5 02:22 Drug: morphine IVP or IV 4 mg IVP once over 4 mins Route: IVP; Infused Over: 4 mins; rg5 Site: right antecubital; 02:49 Follow up: Response: No adverse reaction; Pain is decreased rg5 02:22 Drug: NS 0.9% IV 1000 ml IV at 1 bolus Per protocol; to be given as a bolus over 60 rg5 minutes Route: IV; Rate: 1 bolus; Site: right antecubital; 03:18 Follow up: IV Status: Completed infusion; IV Intake: 1000ml rg5 02:22 Drug: metoCLOPramide IVP 10 mg IVP once; over 1 to 2 minutes Route: IVP; Site: right rg5 antecubital; 02:48 Follow up: Response: No adverse reaction; Pain is decreased rg5 02:23 Drug: Pantoprazole IVP 80 mg IVP once Route: IVP; Site: right antecubital; rg5 02:49 Follow up: Response: No adverse reaction rg5 02:25 Drug: Dicyclomine PO 20 mg PO once Route: PO; rg5 02:48 Follow up: Response: No adverse reaction; Pain is decreased rg5 Medication: 01:42 VIS not applicable for this client. vc1 Intake: 03:18 IV: 1000ml; Total: 1000ml. rg5 Outcome: 03:21 Discharge ordered by . zhao 03:28 Discharged to home ambulatory, rg5 03:28 Condition: stable 03:28 Discharge instructions given to patient, Instructed on discharge instructions, follow up and referral plans. Demonstrated understanding of instructions, follow-up care, medications, Prescriptions given X 3, 03:29 Patient left the ED. rg5 Signatures: Dispatcher [employer] EDMS Christiane Nash RN RN vc1 Dilshad Hensley MD MD sp4 Mitchell, Ginger 2 Iron Alonzo RN RN rg5
[2024-10-21 03:35] VITALS: TEMP 97
[2024-10-21 03:37] VITALS: BP 113/57; O2SAT 98
--- NOTE | 2024-10-21 03:38 | RAD REPORT ---
EXAM: US Abdomen Limited, Gallbladder CLINICAL HISTORY: ABD PAIN TECHNIQUE: Real-time ultrasound of the right upper quadrant with image documentation. COMPARISON: No relevant prior studies available. FINDINGS: Gallbladder: No gallstones, gallbladder wall thickening or pericholecystic fluid. Ultrasound techno logist noted a sonographic negative Leiva's sign. Common bile duct: Unremarkable as visualized. No stones. No dilation. IMPRESSION: No sonographic evidence of cholelithiasis or acute cholecystitis. Electronically signed by: Geovanny Sheehan MD 10/21/2024 03:20 AM [facility] Due to temporary technical issues with the [email or web address] reporting system, reports are being signed by the in-house radiologist without review as a courtesy to ensure prompt reporting the interpreting radiologist is fully responsible for the content of the report. Transcribed Date/Time: 10/21/2024 3:37 AM
== END 2024-10-21 03:29 | disposition home or self-care (01) ==
LOC: ER 01:32
DX: K21.9 Gastro-esophageal reflux disease without esophagitis (principal)
CPT/HCPCS: 96361; 85025; 36415; 84703; 83690; 80053; 76705; 96375; 96374; 99284; J2765; J2470; J7030